=== PATIENT | female | born 1945 | race Caucasian/White ===

== ENCOUNTER 2020-01-20 21:25 | Emergency (ER) | payer OTHER, MEDICARE ==
[~2020-01-20] VITALS: Ht 160 cm; Wt 54.4 kg
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
[2020-01-20 22:16] LABS: URINE BILIRUBIN NEGATIVE (Negative); URINE BLOOD NEGATIVE (Negative); URINE CLARITY CLEAR; URINE COLOR YELLOW; URINE GLUCOSE-RANDOM* NEGATIVE (Negative); URINE KETONES NEGATIVE (Negative); URINE LEUKOCYTES-REFLEX NEGATIVE (Negative); URINE NITRITE-REFLEX NEGATIVE (Negative); URINE PROTEIN (DIPSTICK) NEGATIVE (Negative); URINE SPECIFIC GRAVITY <= 1.005 (1.005-1.035); URINE UROBILINOGEN 0.2 E.U./dl (0.2-1.0)
[2020-01-20 22:23] LABS: AMP/METHAMP Negative (Negative); BARBITURATES Negative (Negative); BENZODIAZEPINES Negative (Negative); COCAINE Negative (Negative); METHADONE Negative (Negative); OPIATES Negative (Negative); PCP Negative (Negative)
[2020-01-20 22:25] LABS: ABSOLUTE NEUTROPHILS 5.7 thou/uL (1.4-8.2); EOSINOPHILS 4.9 % (0.0-3.0); HEMATOCRIT 38.1 % (37.0-47.0); HEMOGLOBIN 13.1 gm/dL (12.0-15.0); LYMPHOCYTES 25.3 % (24.0-44.0); MCH 31.4 pg (26.0-34.0); MCHC 34.3 g/dL (28.0-37.0); MCV 91.5 fL (80.0-100.0); MONOCYTES 7.8 % (1.0-8.0); PLATELET COUNT 334 thou/uL (150-400); RBC 4.16 mil/uL (4.20-5.00); RDW 14.2 % (10.5-14.5); WBC 9.4 thou/uL (4.0-11.0)
[2020-01-20 22:31] LABS: ANION GAP 10 mmol/L (7-16); BUN 20 mg/dL (7-18); CALCIUM 9.8 mg/dL (8.5-10.1); CHLORIDE 105 mmol/L (98-107); CO2 26 mmol/L (21-32); CREATININE 0.8 mg/dL (0.6-1.0); GLUCOSE 107 mg/dL (74-106); POTASSIUM 4.4 mmol/L (3.5-5.1); SODIUM 141 mmol/L (136-145)
[2020-01-20 22:41] LABS: ALBUMIN 3.5 g/dL (3.4-5.0); MAGNESIUM 2.3 mg/dL (1.8-2.4); SALICYLATE < 2.8 mg/dL (2.8-20.0); SGOT 15 U/L (15-37); SGPT 22 U/L (30-65); TOTAL BILIRUBIN 0.2 mg/dL (0.2-1.0); TROPONIN-I <0.06 ng/mL (<0.06)
[2020-01-20] MEDS ORDERED: DULOXETINE HCL30 MG PO (23:43)
[2020-01-20] MEDS ORDERED: ARICEPT10 MG PO (23:44)
[2020-01-20] MEDS ORDERED: NORVASC5 MG PO (23:44)
[2020-01-20] MEDS ORDERED: BACLOFEN5 MG PO (23:44)
[2020-01-20] MEDS ORDERED: ACETAMINOPHEN500 MG PO ×2 (23:46→23:52)
[2020-01-20] MEDS ORDERED: ECOTRIN325 MG PO (23:46)
[2020-01-20] MEDS ORDERED: CALCIUM 600 +1 EA11 PO (23:47)
[2020-01-20] MEDS ORDERED: GLUCOSAMINE &1 EACH PO (23:48)
[2020-01-20] MEDS ORDERED: COENZYME Q10100 MG PO (23:48)
[2020-01-20] MEDS ORDERED: SUPER B COMPLE1 EAC2 PO (23:49)
[2020-01-20] MEDS ORDERED: ORAJEL 3X MOUT5.1 GM TOP (23:49)
[2020-01-20] MEDS ORDERED: MELATONIN3 M2 PO (23:49)
[2020-01-20] MEDS ORDERED: SEROQUEL 25 MG25 M1 PO (23:50)
[2020-01-20] MEDS ORDERED: NF (23:51)
[2020-01-21 04:34] VITALS: BP 135/75
--- NOTE | 2020-01-23 07:33 | EKG ---
[facility] [place] [address] ELECTROCARDIOGRAM REPORT Name: ÓSCAR BAILEY Room #: [facility]#: [id number] Admission: 01/20/20 Attend Phys: Discharge: 01/21/20 Date of : 43 Report #: [id number] THIS REPORT FOR: cc: Rasheed Decker MD, Michael E. 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 Operator: [facility] : 1945 Requested By: Paco Whitfield Order Number: [id number] MD: Yahir Diop Measurements Intervals [place] Rate: 64 P: 40 WI: 252 QRS: 2 QRSD: 97 T: 31 QT: 390 QTc: 403 Interpretive Statements Sinus rhythm Prolonged WI interval No previous ECG available for comparison Electronically Signed On 01-23-2020 7:33:18 LEAD GENERATION MARKETING MANAGER by Yahir Diop [email or web address] <ELECTRONICALLY SIGNED> By: Yahir Diop MD, [facility] 01/23/20 0733 99 99 Yahir Diop MD, FAC /EPI
== END 2020-01-21 04:40 | disposition short-term general hospital (02) ==
LOC: ER 21:25
PROVIDERS: Emergency Medicine; Nurse Practitioner
DX: F03.90 Unspecified dementia, unspecified severity, without behavioral disturbance, psychotic disturbance, mood disturbance, and anxiety (principal); Z79.82 Long term (current) use of aspirin; Z79.899 Other long term (current) drug therapy; Z20.828 Contact with and (suspected) exposure to other viral communicable diseases

== ENCOUNTER 2020-01-21 04:41 | Inpatient (IN) | payer OTHER, MEDICARE ==
[~2020-01-21] VITALS: Ht 160 cm; Wt 57.4 kg
[~2020-01-21 04:41] MED LIST: ACETAMINOPHEN500 MG PO; ARICEPT10 MG PO; BACLOFEN5 MG PO; CALCIUM 600 +1 EA11 PO; COENZYME Q10100 MG PO; DULOXETINE HCL30 MG PO; ECOTRIN325 MG PO; GLUCOSAMINE &1 EACH PO; MELATONIN3 M2 PO; NF; NORVASC5 MG PO; ORAJEL 3X MOUT5.1 GM TOP; SEROQUEL 25 MG25 M1 PO; SUPER B COMPLE1 EAC2 PO
[2020-01-21 05:04] VITALS: BP 125/60
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
[2020-01-21 07:42] VITALS: BP 138/83
[2020-01-21 10:50] VITALS: BP 138/83
--- NOTE | 2020-01-21 12:29 | NUR ---
1229 RESUMMED CARE FROM OVERNIGHT SHIFT THIS AM, PATIENT IN ROOM QUIET. PATIENT CAME TO BREAKFAST ATE TOOK MEDICATION WITHOUT INCIDENCE. PATIENTS ABDOMEN SOFT ROUND BOWEL SOUNDS PRESENT. PATIENTS LUNGS CLEAR PATIENT DENIES SI/VH/AH THIS MORNING PATIENT WAS THREATENING TO PICK A CHAIR UP AND TRY TO BREAK THE WINDOWS OUT TO GET OUT OF HERE. PATIENT WAS CUSSING STAFF OUT I TIRED TO EXPLAIN THE PROCESS OF WHY SHE WAS ADMITTED; AND THAT SHE HAD TO BE EVALUATED BY DR KRUEGER BEFORE SHE CAN LEAVE. PATIENT TRIED TO GET DR BAEZA TO DISCHARGE HER AND ALSO WAS EXPLAINING THE PROCESS. PATIENT SAT AND TALKED WITH OPTOMETRIC AIDE AND THEN STARTED CUSSING AND THREATENING. I GAVE PATIENT AN IM OF OLANZAPINE 5 MG IM TO HELP CALM PATIENT. WILL CONTINUE TO MONITOR PATIENT FOR BEHAVIORS AND SAFETY.
--- NOTE | 2020-01-22 06:07 | NUR ---
01-21-20 CARE TRANSFERRED 1899 OBSERVED PT LEFT-SIDE LYING IN BED RESTING WITH EYES CLOSED. LATER PT WAS EASILY AWAKEN TO VOICE, PT AAOX2, RR 16 EVEN AND NONLABORED ON RA, PT PRESENTS IRRITABLE AND AGITATED AT BEING IN HOSPITAL AND ASKED "HOW FUCKING LONG DO I HAVE TO BE HERE, TELL I SEE THE DOCTOR" PT WAS ORIENTATED AND REASSURED THAT PT WOULD BE SEEING THE DOCTOR AND WOULD HAVE A SUPPORT TEAM THAT WOULD BE ASSITING IN HER CARE. DURING MEDICATION ADMIN PT HAD NO DIFFICULTIES. NO S/S OF ACUTE DISTRESS NOTED, PT WILL CONTINUE TO BE MONITOR PER [facility] PROTOCOL.
[2020-01-22 07:03] VITALS: BP 115/70
--- NOTE | 2020-01-22 12:35 | NUR ---
Assumed care of patient at 0700. Up for breakfast. Came to the dayroom in her wheelchair. Cooperative with morning medications. Takes medication whole. Breath sounds clear, no cough, abdomen soft, active bowel sounds. Complaining of bilateral hip pain radiating down the back of both legs. Noted was having spasms after lunch. Did not observe spasms while sleeping. Patient asked "What is this place?" Oriented to the hospital. Asked patient where she was at [facility]. She responded the hospital but does not know why she is here and where she came from. Is only oriented to person. Responded this was October or November. Irritable but more pleasant as the day progressed. Given Tylenol 650 mg PO for pain at 12:15. (05/23). Came out of her room for lunch and returned to room.
--- NOTE | 2020-01-22 20:37 | NUR ---
Assumed care on 01/22/20, @ 19:15, in bed at start of shift, awakens to voice, responds that she has no needs and denies pain. Cooperated with assessment, HRRR, Lungs CTA, ABD Nx4Q. Reports pain in lower extremities of 3/10. Cooperated with medication administration, taking meds whole with apple juice. Denies knowing own name, oriented to president and election results, denies knowing name of hospital or current date. A&Ox1 to president only. Returns to covered up position in bed and says barbie as I turn the lights off. Bed in low position, will continue to monitor for safety and comfort as per unit protocol.
[2020-01-23 01:54] VITALS: BP 115/70
[2020-01-23 09:28] VITALS: BP 132/74
--- NOTE | 2020-01-23 10:36 | NUR ---
KO contacted [facility] and spoke with Emely, , concerning the Pt. Emely informed the Pt is in [facility] on a locked unit. Pt has her own room at the facility. Emely described the Pt's basline as usually being angry but Pt has never been physically aggressive until recent. Emely asked that updates be faxed to [phone]. KO will continue to follow.
--- NOTE | 2020-01-23 14:00 | NUR ---
1355 RESUMMED CARE FROM OVERNIGHT SHIFT THIS AM, PATIENT IN ROOM QUIET. PATIENT CAME ATE BREAKFAST TOOK MEDICATION WITHOUT INCIDENCE, PATIENTS ABDOMEN SOFT FLAT. BOWEL SOUNDS PRESENT LUNGS CLEAR PATIENT IRRITATED ABOUT DR KRUEGER NOT SEEING HER YET. PATIENT DENIES SI/HI/AH/VH AT PRESENT PATIENT IS ORIENTED TO SELF AND YEAR. PATIENT IS VERY ARGUMENTATIVE WHEN STAFF IS TRYING TO TALK WITH HER ABOUT HER CONDITION. THE PIPE LAYER CAME TO TALK WITH PATIENT ABOUT THE 96 HOUR HOLD. PATIENT WAS NOT RECEPTIVE OF WHAT THE PIPE LAYER WAS TELLING HER. PATIENT MET WITH DR KRUEGER AND DOMINIQUE AND DR KRUEGER GAVE PATIENT COPIES OF HIS EVALUATION. PATIENT IS NOT COMPREHENDING THAT HER DEMENTIA IS GETTING WORST. WILL CONTINUE TO MONITOR PATIENT FOR SAFETY AND BEHAVIORS.
[2020-01-23 19:28] VITALS: BP 109/66
[2020-01-23 20:34] VITALS: BP 109/66
--- NOTE | 2020-01-24 05:22 | NUR ---
PATIENT AWOKE AROUND 0400 AND GOT UP TO BRUSH TEETH. SHE SLAMMED HER DOOR SHUT. I WENT TO CHECK ON HER AND SHE WAS ANGRY THAT SHE COULDN'T BRUSH HER TEETH BECAUSE THERE WAS NO WAY TO TURN ON THE FAUCET IN HER BATHROOM. I SHOWED HER HOW IT IS MOTION DETECTED. PATIENT DID CRY FOR A FEW MINUTES LAST NIGHT BECAUSE SHE MISSES HER DOG. NOW AT THIS TIME SHE TOLD THIS NURSE SHE LAYS IN BED THAT SHE HAS TO GO HOME TODAY SO SHE CAN SEE HER POOH BEAR. SHE COULDN'T REMEMBER WHO HAD HER DOG BUT LAST EVENING WAS ABLE TO TELL ME THAT HER BROTHER HAS HER DOG. SHE ALSO STATES SHE HAS NOT SEEN THE DOCTOR SINCE SHE'S BEEN HERE. I TOLD HER SHE WAS TALKING WITH HIM IN THE [place] LAST NIGHT AND I WAS THERE TOO. SHE CALLED ME A LIAR. PATIENT CRANKY AND MEMORY IS VERY POOR. SHE WAS CARRYING A COPY OF HER SLUMS TEST AROUND LAST NIGHT AND STATES SHE DOES NOT AGREE WITH THE RESULTS AT ALL. WILL CONTINUE TO MONITOR.
[2020-01-24 07:19] VITALS: BP 152/96
--- NOTE | 2020-01-24 08:52 | NUR ---
ASSUMED CARE AT 0700 THIS MORNING. PT. CAME OUT OF HER ROOM YELLING AT STAFF THAT SHE WANTS HER DOG. WHEN SHE WAS INFORMED THAT THIS WOULD NOT HAPPEN, SHE BECAME INSTANTLY IRATE, CURSING AND SCREAMING. "YOU BITCH, I WANT MY GOD DAMN DOG.!" "I'M GETTING OUT OF THIS GOD DAMN HELL HOLE." SHE PUT HER LEFT HAND ON HER RIGHT UPPER ARM AND SHOVED UP THE RIGHT ARM. SHE INITIALLY REFUSED HER MORNING MEDICATIONS BUT WAS INFORMED THAT A SHOT WAS A DEFINITE POSSIBILITY, SHE TOOK THE MEDICATIONS. THIS RN ASKED TO SEE IN HER MOUTH TO MAKE SURE SHE DID NOT CHEEK THE MEDICATIONS. SHE STARTED MAKING FACES AT THIS RN. THEN SHE WALKED OFF. SHE ATE HER BREAKFAST WELL
[2020-01-24 10:57] VITALS: BP 1542/96
[2020-01-24 19:48] VITALS: BP 149/85
--- NOTE | 2020-01-24 21:52 | NUR ---
ASSUMED PT CARE AT 1915. PT RESTING CALMLY IN THE DAY ROOM WATCHING TV. PT DENIES PAIN. ALERT AND ORIENTED TO PERSON, TIME, AND PLACE. LUNG SOUNDS CTA. HEART SOUND NORMAL WITH REGULAR RHYTHM. ABDOMEN SOFT WITH ACTIVE BOWEL SOUNDS. SKIN PINK, CDI. NO AGITATION, AGGRESSIVENESS, CURSING, OR YELLING EXHIBITED AT THIS TIME. WILL CTM
[2020-01-25 07:46] VITALS: BP 157/91
--- NOTE | 2020-01-25 09:33 | NUR ---
ACCEPTED CARE OF PATIENT FROM 7P-7A SHIFT. PT IS HERE WITH DX OF DEMENTIA WITH AGGRESSIVE BEHAVIOR,COGNITIVE DISORDER. IS UP AND DRESSES SELF ASKS FOR DISPOSIBLE UNDERWARE.EATS WELL AT BREAKFAST AND TAKES MEDS PO WHOLE WITHOUT DIFFICULTY.ASKS THIS MULE DEVELOPER REPEATEDLY WHY SHES HERE AND HOW MUCH IT COSTS AND THAT SHE WANTS TO HAVE HER LITTLE DOG HER BROTHER TOOK AWAY FROM HER. IS ABLE TO SET DURING GROUP AND TALKS IN A PLEASANT TONE.
--- NOTE | 2020-01-25 10:53 | NUR ---
KO faxed updates for pt from 01/20-01/24. SW team will continue to follow pt during her stay on this unit.
[2020-01-25 13:54] VITALS: BP 157/91
[2020-01-25 19:56] VITALS: BP 109/63
--- NOTE | 2020-01-25 20:16 | NUR ---
PT CARE ASSUMED AT 1910. PT SITTING IN THE DAY ROOM WATCHING TV. PT OBSERVED INTERACTING PROPERLY WITH OTHER PTS. NO PAIN REPORTED AT THIS TIME. PT ALERT AND ORIENTED TO PERSON AND PLACE. LUNGS CTA. HEART SOUNDS NORMAL WITH REULAR RHYTHM. ABDOMEN SOFT, FLAT, WITH NORMAL BOWEL SOUNDS. SKIN CDI, CLEAN AND WARM. NO AGGRESSIVE BEHAVIOR OR AGITATION NOTED AT THIS TIME. WILL CTM.
[2020-01-26 07:36] VITALS: BP 124/85
[2020-01-26 09:21] VITALS: BP 126/85
--- NOTE | 2020-01-26 10:10 | NUR ---
1000 RESUMMED CARE FROM OVERNIGHT SHIFT THIS AM, PATIENT IN ROOM ASLEEP. PATIENT VERY GROUCHY THIS AM CUSSING AT STAFF TO LET HER JUST SLEEP. PATIENT DID GET UP ATE BREAKFAST TOOK MEDICATION WITHOUT INCIDENCE. PATIENT COMPLAINING TO ANOTHER PATIENT ABOUT WANTING TO GET OUT OF HERE. PATIENT ORIENTED TO SELF, PLACE, YEAR COULD NOT THINK OF DAY. PATIENT DENIES SI/HI/AH/VH AT PRESENT. PATIENT IS VERY DEMANDING AND OFTEN USES CUSS WORDS, PATIENTS ABDOMEN SOFT FLAT. PATIENTS BOWEL SOUNDS PRESENT LUNGS CLEAR WILL CONTINUE TO MONITOR PATIENT FOR SAFETY AND BEHAVIORS.
--- NOTE | 2020-01-26 13:48 | NUR ---
KO met with Dr. Francisco who said that pt has begun to make progress and believes discharge should be Thursday. KO contacted [facility] and asked to speak to [facility]. KO was told by the instrument specialist that Surjit was not in. KO asked who she could speak to about pt's discharge. KO was advised that she could speak to [place]. KO introduced herself to Geneva and explained what the doctor's beliefs were. Geneva asked "well what is he basing that off of? I reviewed the notes and she looks like she is still not ready." KO explained that yes at one point she wasnt, but that she has turned for the better; this is why the doctor wants to keep her during her weekend. Geneva said "well someone can call Thursday and discuss this." KO advised that is not how things are done. If pt has a bad weekend, the team will cancel the discharge. However, if she does not, she will have met the maximum benefit of her stay and will need to return. [place] said "well I'm not accepting her if she is not ready." KO advised that is not the policy, and that this unit has never had that relationship with [facility]. KO reminded her that this unit has had several of their patients return in better states than when they left. Geneva began to elevate her voice, over talk KO and tell her that she is not accepting pt. KO told her to have a good day, and politely hung up the phone. KO notified the [facility] director of this interaction. SW team will continue to follow pt during her stay on this unit.
--- NOTE | 2020-01-27 00:57 | NUR ---
Assumed care on 01/26/20 @ 19:15. Seated in the mileu watching a movie on TV and socializing with peers. Noted to be making verbal insulting comments to a peer and when ccautioned by staff to keep communications with peers civil and kind, responded, "don't nit pick on me" Cooperated with assessment, HRRR, S1S2 noted. Lungs CTA, BS normoactive. Speaks of her dog who she says she misses. Asks multiple times why her dog cannot be with her here. Denies anxiety, depression, SI, HI, AH, VH. Zeke provided @@ 2255 for insomnia. In bed at this time, eyes closed, respirations even and unlabored. Will continue to monitor as per unit protocol for safety and comfort.
[2020-01-27 01:06] VITALS: BP 133/60
--- NOTE | 2020-01-27 06:42 | NUR ---
Slept 6.2 hours overnight.
[2020-01-27 09:04] VITALS: BP 150/84
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
--- NOTE | 2020-01-27 11:30 | NUR ---
KO and Dr. Francisco contacted [facility] at [phone]. No answer. Dr. Francisco left a msg. KO team will continue to follow pt during her stay on this unit.
--- NOTE | 2020-01-27 15:43 | NUR ---
DURING WEEK ONE OF HER ADMISSION, ÓSCAR STARTED OFF WITH A STRUGGLE ADJUSTING TO THE NEW ENVIRONMENT. PT APPEARED IRRITABLE AND AGGITATED. PT DEMONSTRATED LOUD OUTBURTS WELL AGGRESSIVE BEHAVIORS. PT HAS APPEARED MORE CALMER THAN BEFORE DUE TO BEING ON THE PROPER MEDICATIONS. PT HAS BEEN MORE COMPLAINT SINCE THEN AND HAS ATTENDED ALL GROUPS WITH APPROPRIATE BEHAVIORS. IT IS ENCOURAGED BY THE RECREATION THERAPIST THAT SHE WILL CONTINUE TO IMPROVE HER COPING SKILLS TO REDUCE FUTURE STRESSORS.
--- NOTE | 2020-01-27 16:09 | NUR ---
PATIENT CARE ASSUMED AT 0700 - HAS BEEN IRRITABLE AND UPSET WITH DISRUPTIVE PATIENT - BECAME CONFRONTATIONAL WITH STAFF MEMBER OVER TELEVISION AND INABILITY TO CHANGE CHANNEL. PATIENT HAS BEEN IN PAIN WITH HER FRONT TOOTH. GIVEN TYLENOL TO HELP RELIEVE DISCOMFORT. PATIENT CAN BE DEMANDING AND DIFFICULT TO APPEASE AT TIMES. HAS DISPLAYED ANGER, DISTASTFUL STATEMENTS ABOUT STAFF AND PEERS AND ANXIOUSNESS. MED COMPLIANT - SELF CARE - GOOD APPETITE - FORGETFUL AT TIMES.
--- NOTE | 2020-01-27 17:58 | NUR ---
PT. AFTER SUPPER C/O SHE WAS STILL HUNGRY. SHE WAS CAUGHT IN THE REFRIGERATOR PICKING UP JUICE, PUDDING AND ALSO PEANUTBUTTER. SHE WAS INFORMED ALL FOOD MUST BE CONSUMED IN THE DINING ROOM. WHEN THIS RN LOOKED AROUND, PT. WAS NOT TO BE FOUND. WENT TO HER ROOM AND SHE WAS EATING THE FOOD. THE REMAINDER OF THE FOOD WAS TAKEN BACK TO THE KITCHEN. SHE WAS C/O, "YOU ARE STARVING ME". IT WAS AGAIN EXPLAINED SHE AT 100% OF HER SUPPER AND TOOK FOOD OUT OF THE REFRIGERATOR (EVEN AFTER BEING TOLD NOT TO) AND TAKING THE FOOD TO HER ROOM (EVEN THOUGH SHE WAS INFORMED SHE COULD NOT). SHE CAME BACK INTO THE DINING ROOM AND CONSUMED SOME PUDDING. NO OTHER PROBLEMS NOTED AT THIS WRITING.
[2020-01-27 19:06] VITALS: BP 134/83
--- NOTE | 2020-01-28 04:59 | NUR ---
Assumed care of patient this pm shift. Patient in good spirits in the mileu. Patient denies hi/si. Patients affect is happy, euthymic. Patient takes medications whole with thin fluids. Patient is continent of bowel and bladder. Patient is not considered a falls risk. Gait is steady and even. No signs of acute distress. We will continue to monitor per hospital policy.
[2020-01-28 11:00] VITALS: BP 127/68
--- NOTE | 2020-01-28 18:31 | NUR ---
Alert and orientated to person, place only. Refusing assessment in AM and all meds except for tylenol. Initially refused quetiapine but took once she was told she would have to have IM olanzapine. [place] self in WC most of day. States she has pain of 3 in lower back and hips. Dr. Philip here examining pt, pelvic Xray done. Breath sounds clear t/o, bilaterally equal. Reg HR auscultated. Color pink with brisk capillary refill and palpable peripheral pulses. Active bowel sounds over soft, flat abdomen. MOM and prune juice given for no reported stool since 01/24/20. Large firm BM per toilet per community educator. Lidocaine patch placed and prn tylenol given for back pain of 09/22. No relief from meds. Dr. Philip notified. PRN med given per order for pain of 07/23. Currently looking for remote and wanting heat adjusted in her room. No s/o distress.
[2020-01-28 20:16] VITALS: BP 138/76
--- NOTE | 2020-01-29 03:39 | NUR ---
01-28-12 CARE TRANSFERRED 1899 OBSERVED PT WALKING IN HALLWAY. 1950 PT AAOX3, VSS, RR EVEN AND NONLABORED ON RA. PT REPORTS HIP PAIN BI-LAT SCORES 6-7 ON 0-10 SCALE, PT DENIES SI/HI. PT PRESENTS ANGRY WITH ANXIETY OVER HER SITUATION AND WORRIED ABOUT HER DOG POOBEAR. PT CLAIMS THAT SHE HAS NOT SEEN A DOCTOR HERE YET, FORGETFUL ON DAILY EVENTS. PT HAS REMAINED CALM AND COOPERATIVE THROUGOUT NURSING ASSESSMENT. DURING MEDICATION ADMIN PT HAD NO DIFFICULTIES. LATER PT BED WAS READJUSTED FOR COMFORT. ZERO S/S OF ACUTE DISTRESS NOTED, PT WILL CONTINUE TO BE MONITOR PER [facility] PROTOCOL.
[2020-01-29 08:40] VITALS: BP 155/79
[2020-01-29 10:54] VITALS: BP 155/79
--- NOTE | 2020-01-29 12:12 | NUR ---
KO spoke to Geneva Simmons, Clinical Director with [facility] [phone] cell who reports she is hesitant to take patient back because she feels like the hospital is trying to strong-arm her. She states she will review the nurses notes of how patient does over the weekend and will make a decision on Thursday about whether to accept patient. She asked for a call back on Thursday morning. SW team will continue to monitor.
--- NOTE | 2020-01-29 13:21 | NUR ---
1315 RESUMMED CARE FROM OVERNIGHT SHIFT THIS AM, PATIENT IN ROOM RESTING QUIET. PATIENT GOT UP ATE BREAKFAST TOOK MEDICATION WITHOUT INCIDENCE. PATIENTS ADBOMEN SOFT FLAT BOWEL SOUNDS PRESENT LUNGS CLEAR PATIENT TOOK SHOWER THIS AM. PATIENT DENIES SI/HI/AH/VH AT PRESENT PATIENT OREINTED TIMES 3. PATIENT PARTICIPTED IN GROUPS TODAY COVID TEST DONE AT 0905 THIS AM. PATIENT CALM COOPERATIVE WANTS TO GO BACK TO [facility] SO SHE CAN BE WITH HER DOG. WILL CONTINUE TO MONITOR PATIENT FOR SAFETY AND BEHAVIORS.
[2020-01-29 19:21] VITALS: BP 155/70
--- NOTE | 2020-01-29 22:25 | NUR ---
Care assumed of patient at 1915: Patient awake in room at start of shift. Joined [facility] for HS snack. Interacting and communicating appropriately with others. Alert and oriented to person and place. Forgetful on time and situation. Patient reports that she is happy to be going home tomorrow. Calm, pleasant and cooperative. Reports "some" depression due to being in the hospital. Reports anxiety is "much better" since she will be leaving tomorrow. Reports pain to right hip. Provided scheduled HS pain medication. Patient sleeping shortly after. Took HS medication whole without difficulty. No aggression or agitation observed. No delusional or paranoia behaviors observed. Patient resting quietly in bed at this time.
[2020-01-30 08:19] VITALS: BP 144/75
--- NOTE | 2020-01-30 10:36 | NUR ---
KO spoke with [facility] at [facility] concerning the Pts' d/c. Brit stated she recieved the clinical notes and was willing to accept the Pt today. D/C was set for 01/29 @ 1330. [facility] transportation for the Pt to [place]
[2020-01-30] MEDS ORDERED: FELODIPINE 5 MG5 M1 PO (11:25)
[2020-01-30] MEDS ORDERED: TRAZODONE HCL50 MG PO (11:26)
[2020-01-30] MEDS ORDERED: SEROQUEL 100 M100 M1 PO (11:28)
[2020-01-30] MEDS ORDERED: HYDROCORTISONE30 G9 TOP (11:29)
--- NOTE | 2020-01-30 15:45 | NUR ---
PATIENT DISCHARGED TO [facility] [place] - [facility] PICKED UP AT 1515 - PATIENT HAD BELONGINGS WITH HER AND SIGNED NECESSARY PAPERWORK. PRESCRIPTIONS IN ENVELOPE ALONG WITH HOSPITAL DOCUMENTATION AND RECORDS. PATIENT ESCORTED DOWN VIA WHEELCHAIR. THREE O'CLOCK MEDICATIONS ADMINISTERED PRIOR TO DEPARTURE.
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
== END 2020-01-30 15:49 | DRG 57 ==
LOC: SBH 04:41
PROVIDERS: ADMIT Psychiatry & Neurology Psychiatry; ATTEND Psychiatry & Neurology Psychiatry
DX: G30.9 Alzheimer's disease, unspecified (principal); F02.81 Dementia in other diseases classified elsewhere, unspecified severity, with behavioral disturbance; F29 Unspecified psychosis not due to a substance or known physiological condition; F32.9 Major depressive disorder, single episode, unspecified; I10 Essential (primary) hypertension; Z96.649 Presence of unspecified artificial hip joint; M19.90 Unspecified osteoarthritis, unspecified site; Z66 Do not resuscitate; M54.9 Dorsalgia, unspecified; R21 Rash and other nonspecific skin eruption; Z20.828 Contact with and (suspected) exposure to other viral communicable diseases; Z88.1 Allergy status to other antibiotic agents; Z88.8 Allergy status to other drugs, medicaments and biological substances; Z79.899 Other long term (current) drug therapy; Z87.891 Personal history of nicotine dependence
CPT/HCPCS: 10880

== ENCOUNTER 2021-02-22 11:22 | Emergency (ER) | payer OTHER, MEDICARE ==
[~2021-02-22] VITALS: Ht 162.6 cm; Wt 54.0 kg
--- NOTE | ~2021-02-22 | EMS ---
[address] [address] EMS Patient Care Report Name: ÓSCAR BAILEY Room #: PRE M.R.#: [id number] Admission: Attend Phys: Discharge: Date of : 43 Report #: [id number] THIS REPORT FOR: //name// Report Transmitted: 02/22/2021 11:06 EMS Care Summary [facility] MED-ACT Incident [id number] @ 02/22/2021 10:45 Incident Location [address] [place] [address] Patient ÓSCAR BAILEY Female, 76 Years 1945 Patient Address [address] [place] [address] Patient History Hypertension (HTN),Alzheimer's,Hyperlipidemia,Fibromyalgia,Rheumatoid Arthritis,Anemia,Alcohol Abuse, Patient Allergies Augmentin,Other drug allergy,Prozac, Patient Medications Aspirin, Gabapentin, Felodipine, Divalproex Sodium, Baclofen, Memantine, Duloxetine, Acetaminophen, Trazodone, Tramadol, Donepezil, Lidocaine, Chief Complaint AGGRESSIVE AND COMBATIVE Disposition Transported No Lights/[place] Reason Psychiatric Problem/Abnormal Behavior/Suicide Attempt Transported To [address] [address] EMS Patient Care Report Name: ÓSCAR BAILEY Room #: PRE ER Adam.#: [id number] Admission: Attend Phys: Discharge: Date of : 43 Report #: [id number] Pt is found calmly sitting in a chair in the main room of the facility. Staff states that the pt has been acting aggressively the past week. She has been trying to smoke cigarettes in her room and has also been hitting and violent to staff. Staff states that they have made arrangements with [facility] for a behavioral admission, and relays that the pt is to first start in the ER. Pt converses politely enroute to ER. She states that her only complaint is body spasms that she wishes would stop. She denies any pain, recent illness. Pt is able to stand and sit on the cot without difficulty and is secured. Pt is sheet lifted to ED bed without incident and report to RN. Initial Vitals @11:10P: 80,SpO2: 94, @11:13P: 80,R: 16,BP: 124/75,SpO2: 94, @10:59P: 79,R: 18,BP: 131/80,SpO2: 93, @10:59Pain: 0/10,Temp: 97.8F,Glucose: 108, Impression Behavioral/psychiatric episode Procedures @10:57 Stretcher Response: Unchanged @11:07 Surgical Mask on Patient Response: Unchanged Timeline 10:43,Call Received 10:43,Psap Call 10:45,Dispatched 10:45,En Route 10:51,On Scene 10:55,At Patient 10:57,Stretcher,Response: Unchanged 10:59,BP: / M,PULSE: ,RR: R,SPO2: Ox,ETCO2: ,B,PAIN: 0,GCS: , 10:59,BP: 131/80 M,PULSE: 79,RR: 18 R,SPO2: 93 Ox,ETCO2: ,BG: ,PAIN: ,GCS: , 11:02,Depart Scene 11:07,Surgical Mask on Patient,Response: Unchanged 11:10,BP: / M,PULSE: 80,RR: R,SPO2: 94 Ox,ETCO2: ,BG: ,PAIN: ,GCS: , 11:13,BP: 124/75 M,PULSE: 80,RR: 16 R,SPO2: 94 Ox,ETCO2: ,BG: ,PAIN: ,GCS: , 11:17,At Destination 11:39,Call Closed Disclaimer v1.1 Copyright 2020 [employer] This EMS Care Summary contains data elements from the applicable legal record (which may be displayed differently). It is designed to provide pertinent [address] [place] [address] EMS Patient Care Report Name: ÓSCAR BAILEY Room #: PRE [facility]..#: [id number] Admission: Attend Phys: Discharge: Date of : 43 Report #: [id number] information for the following purposes: continuity of care, clinical quality, and state data reporting. The complete legal record is available to ED staff and administrators of the receiving hospital in [employer] Patient Tracker. All data is provided "as is."
[~2021-02-22 11:22] MED LIST changes: +FELODIPINE 5 MG5 M1 PO; +HYDROCORTISONE30 G9 TOP; +SEROQUEL 100 M100 M1 PO; +TRAZODONE HCL50 MG PO
[2021-02-22] MEDS ORDERED: MEMANTINE HCL5 MG PO (11:44)
[2021-02-22] MEDS ORDERED: TRAMADOL 50 MG50 MG PO (11:44)
[2021-02-22] MEDS ORDERED: GABAPENTIN 100100 MG PO (11:44)
[2021-02-22 11:51] VITALS: BP 125/68
[2021-02-22 11:51] LABS: ABSOLUTE NEUTROPHILS 4.1 thou/uL (1.4-8.2); BASOPHILS 1.1 % (0.0-2.0); EOSINOPHILS 5.1 % (0.0-3.0); HEMATOCRIT 41.3 % (37.0-47.0); HEMOGLOBIN 13.8 gm/dL (12.0-15.0); LYMPHOCYTES 26.8 % (24.0-44.0); MCH 30.9 pg (26.0-34.0); MCHC 33.4 g/dL (28.0-37.0); MCV 92.7 fL (80.0-100.0); MONOCYTES 8.2 % (1.0-8.0); PLATELET COUNT 325 thou/uL (150-400); POLYS 58.8 % (36.0-66.0); RBC 4.45 mil/uL (4.20-5.00); RDW 13.7 % (10.5-14.5); WBC 6.9 thou/uL (4.0-11.0)
[2021-02-22 12:31] LABS: CALCIUM 9.5 mg/dL (8.5-10.1); CREATININE 0.8 mg/dL (0.6-1.0); POTASSIUM 3.9 mmol/L (3.5-5.1); TOTAL BILIRUBIN 0.2 mg/dL (0.2-1.0)
[2021-02-22 12:39] LABS: MAGNESIUM 2.3 mg/dL (1.8-2.4); SALICYLATE 3.8 mg/dL (2.8-20.0)
[2021-02-22 12:44] LABS: TOTAL PROTEIN 6.7 g/dL (6.4-8.2)
[2021-02-22 13:10] LABS: URINE BILIRUBIN NEGATIVE (Negative); URINE BLOOD NEGATIVE (Negative); URINE CLARITY CLEAR; URINE COLOR YELLOW; URINE GLUCOSE-RANDOM* NEGATIVE (Negative); URINE KETONES NEGATIVE (Negative); URINE LEUKOCYTES-REFLEX NEGATIVE (Negative); URINE NITRITE-REFLEX NEGATIVE (Negative); URINE PROTEIN (DIPSTICK) NEGATIVE (Negative); URINE SPECIFIC GRAVITY 1.025 (1.005-1.035); URINE UROBILINOGEN 0.2 E.U./dl (0.2-1.0)
[2021-02-22 13:17] LABS: AMP/METHAMP Negative (Negative); BARBITURATES Negative (Negative); BENZODIAZEPINES Negative (Negative); COCAINE Negative (Negative); METHADONE Negative (Negative); OPIATES Negative (Negative); PCP Negative (Negative)
--- NOTE | 2021-02-23 11:54 | EKG ---
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1945 Requested By: Ulises Ramesh Order Number: [id number] MD: Yahir Diop Measurements Intervals Clymer Rate: 71 P: 35 NC: 213 QRS: -16 QRSD: 74 T: 139 QT: 358 QTc: 389 Interpretive Statements Sinus rhythm Borderline prolonged NC interval Abnormal R-wave progression, early transition Inferior infarct, old Consider anterior infarct Compared to ECG 01/20/2020 22:00:12 Myocardial infarct finding now present Electronically Signed On 02-23-2021 11:54:31 EDI ANALYST by Yahir Diop [email or web address] <ELECTRONICALLY SIGNED> By: Yahir Diop MD, [facility] 02/23/21 1154 113 36 Yahir Diop MD, FAC /EPI
== END 2021-02-22 16:04 ==
LOC: ER 11:22
PROVIDERS: Emergency Medicine
DX: R45.1 Restlessness and agitation (principal); I10 Essential (primary) hypertension; K21.9 Gastro-esophageal reflux disease without esophagitis; F41.9 Anxiety disorder, unspecified; F32.9 Major depressive disorder, single episode, unspecified; E78.5 Hyperlipidemia, unspecified; F17.210 Nicotine dependence, cigarettes, uncomplicated; Z79.891 Long term (current) use of opiate analgesic; Z79.1 Long term (current) use of non-steroidal anti-inflammatories (NSAID); Z79.899 Other long term (current) drug therapy; Z79.82 Long term (current) use of aspirin; Z88.1 Allergy status to other antibiotic agents; Z88.6 Allergy status to analgesic agent; Z88.5 Allergy status to narcotic agent; Z88.8 Allergy status to other drugs, medicaments and biological substances

== ENCOUNTER 2021-02-22 17:33 | Inpatient (IN) | payer OTHER, MEDICARE ==
[~2021-02-22] VITALS: Ht 162.6 cm; Wt 67.7 kg
[~2021-02-22 17:33] MED LIST changes: +GABAPENTIN 100100 MG PO; +MEMANTINE HCL5 MG PO; +TRAMADOL 50 MG50 MG PO
[2021-02-22 18:09] VITALS: BP 138/84
--- NOTE | 2021-02-22 18:54 | NUR ---
PATIENT NEW ADMIT HERE FROM [facility], PATIENT IN ER HAD MULTIPLE IM'S DUE TO AGGRESSION. PATIENT BIT DOPE SPRAYER IN ER WAS STANDING ON TABLE IN ER. PATIENT UPON ARRIVING ON UNIT COOPERATIVE CALM WAS COOPERATIVE WITH ASSESSMENT. PATIENT ALERT TO SELF ONLY HAS CONFUSION DOES NOT KNOW WHAT YEAR, PLACE OR SITUATION. PATIENT HAS MULTIPLE DRUG ALLERGIES AND MEDICAL PROBLEMS. PATIENTS ABDOMEN SOFT BOWEL SOUNDS PRESENT PATIENTS LUNGS CLEAR. I CALLED BROTHER SELENA JEFFERS FOR CONSENTS AND GAVE HIM THE SECURITY CODE. WILL CONTINUE TO MONITOR PATIENT FOR SAFETY AND BEHAVIORS. CALLED DR KRUEGER FOR ORDERS AND TALKED WITH DR GUIDRY FOR NEW ADMIT. WILL CONTINUE TO MONITOR PATIENT FOR SAFETY AND BEHAVIORS.
[2021-02-22 19:14] VITALS: BP 129/82
--- NOTE | 2021-02-23 04:13 | NUR ---
Assumed pt's care beginning of this HS shift. Pt oriented to self. Confused. Forgetful. Pt so far cooperative with care. Pt verbalized having generalized pain. Tramadol ordered and given. Pt has spasm which she voiced has been happening "for along time". Pt's bed alarm was not working and bed was switched. Fall precaution in place as pt is unsteady. Pt provided with walker for ambulation. Pt woke up onetime and asked for her dog "poohbear" which lives with her at her nursing facility. Pt reoriented to place and situation. Pt denied the reasons for her being here. Pt continues to remain cooperative with care and continues to rest with eyes closed. Nursing to continue to monitor.
[2021-02-23 07:40] LABS: ABSOLUTE NEUTROPHILS 4.6 thou/uL (1.4-8.2); BASOPHILS 0.9 % (0.0-2.0); EOSINOPHILS 5.5 % (0.0-3.0); HEMATOCRIT 39.9 % (37.0-47.0); HEMOGLOBIN 13.4 gm/dL (12.0-15.0); MCH 31.2 pg (26.0-34.0); MCHC 33.5 g/dL (28.0-37.0); MCV 93.1 fL (80.0-100.0); MONOCYTES 7.4 % (1.0-8.0); PLATELET COUNT 304 thou/uL (150-400); POLYS 60.2 % (36.0-66.0); RBC 4.29 mil/uL (4.20-5.00); RDW 13.8 % (10.5-14.5); WBC 7.7 thou/uL (4.0-11.0)
[2021-02-23 07:58] LABS: ANION GAP 8 mmol/L (7-16); BUN 15 mg/dL (7-18); CHLORIDE 107 mmol/L (98-107); CO2 26 mmol/L (21-32); CREATININE 0.7 mg/dL (0.6-1.0); GLUCOSE 86 mg/dL (74-106); POTASSIUM 4.3 mmol/L (3.5-5.1); SGOT 27 U/L (15-37); SGPT 26 U/L (14-59); SODIUM 141 mmol/L (136-145); TOTAL BILIRUBIN 0.2 mg/dL (0.2-1.0); TOTAL PROTEIN 6.5 g/dL (6.4-8.2)
[2021-02-23 09:54] VITALS: BP 147/67
--- NOTE | 2021-02-23 10:37 | NUR ---
ATE BREAKFAST IN ROOM THIS AM D/T COVID PROTOCOL-SLEEPING UPON INITIAL ASSESSMENT BUT WHEN AM MEDICATIONS GIVEN AND ASSESSMENT COMPLETED WAS AWAKE AND SITTING IN DAYROOM. IRRITABLE -ASKING SEVERAL TIMES FOR DOG "POO BEAR" ANGRY AFFECT STATING SHE IS LEAVING AND GOT UP ABRUPTLY AND WALKED OUT OF ROOM. PACING IN HALLWAYS TRYING EXIT DOORS AND EXIT SEEKING -DID TAKE AM SEROQUEL BUT REFUSED NICOTINE PATCH. VS STABLE-GAIT STEADY WITHOUT ASSISTIVE DEVICES
[2021-02-23 15:10] LABS: CHOLESTEROL 303 mg/dL (<200); HDL CHOLESTEROL 52 mg/dL (>40); LDL CHOLESTEROL 218 mg/dL (<100); TC:HDL 5.8 Ratio (Not establshd); TRIGLYCERIDE 165 mg/dL (<150); VLDL 33 mg/dL (<40)
[2021-02-23 15:14] LABS: SERUM ASSESSMENT Clear
--- NOTE | 2021-02-23 16:29 | NUR ---
CONTINUES RESTLESS-ASKING FOR DOG AND TO GO HOME STATES MULTIPLE TIMES THAT SHE IS HERE BECAUSE HER BROTHER IS TRYING TO [id number] HER AND HATES HER AND DENIES ANY TYPE OF BEHAVIORS THAT WOULD WARRENT HOSPITILIZATION. DENIES SI,SH,HI. GAIT STEADY WITHOUT ASSISTIVE DEVICES. HAS RAISED VOICE TO NURSING STAFF SEVERAL TIMES AND STATES WE ARE "IN ON IT" WITH HER BROTHER. DID COME OUT FOR MEALS AND ATE 10-50 PERCENT. HAS BEEN TAKING SELF TO BATHROOM AND NO INCONTINENCE NOTED. BS ACTIVE X4-STATES HAD BM YESTERDAY AND DENIES CONSTIPATION-IRRITABLE MOOD WITH EPISODIC VERBAL AGITATION BUT SO FAR NO PHYSICAL AGGRESSION
[2021-02-23 19:19] VITALS: BP 145/104
--- NOTE | 2021-02-24 03:13 | NUR ---
Assumed pt's care beginning of this pm shift. Pt oriented to self. Confused. Forgetful. Pt was in her room at time of assessment. Pt so far this shift has been pleasant and cooperative with care. No agitation or agression noted. Pt took meds whole without issues. PRN Tramadol given for pain per pt's request. Pt voiced pain is worst with spasms. Pt remains in her room, resting with eyes closed. Nursing to continue to monitor.
[2021-02-24 05:36] LABS: GLYCOHEMOGLOBIN (HGB A1C) 5.7 % (4.8-5.6)
[2021-02-24 10:24] VITALS: BP 153/74
[2021-02-24 19:55] VITALS: BP 123/56
[2021-02-24 20:09] VITALS: BP 123/56
--- NOTE | 2021-02-24 21:23 | NUR ---
Assumed pt care at 1300. Pt was in activity area resting at this time. Pt presented restless and hostile. Pt was oriented to self only at this time, continuing to ask for her dog and stating that [facility]. Pt was reoriented to environment at this time. Pt denied any depression or anixety. Pt denied any visual or audio hallucinations though was noted to have delusion of having her dog, being in a senior facility, and not being oriented to her environment. Pt was tearful and would cry about her dog. Pt was comforted at this time. No suicidal or homicidal ideation noted. Pt redirectable. Prn tramadol given for headache which provided complete pain relief. No further concerns at this time.
--- NOTE | 2021-02-25 01:04 | NUR ---
02/24/210 assumed care from the day shift, patient isolating to room, A&Ox1 only oriented to self. Confusion noted regarding place, reports that she is not in a hospital, not oriented to situation. Asks repeatedly for PooBear, which seems to be a dog, however not certain whether it is a pet dog or a stuffed toy dog. She reports that her brother is caring for the dog. Tylenol 650 given for General pain level of 6/10, and upon follow up is noted to be sleeping. Baclofen provided as scheduled. Awakens in the night asking to smoke and how long she has been here, when oriented to admission 2.5 days ago, she asks if she has been here 2 weeks. Ambulates with a steady gait, toilets self, ABD Nx4Q, over a round abdomen. 12 minute rounding for patient's safety and comfort as per unit protocol.
[2021-02-25 09:09] VITALS: BP 143/74
--- NOTE | 2021-02-25 10:15 | NUR ---
New admit to [facility] with dementia and behavioral disturbance. Intake records show average of 60% of past 7 meals recorded. Visit with pt this am, states no problems with appetite but did mention wanting same breakfast of reynoso, eggs, toast, juice every morning. Does not like cereals. Wt from 2020 shows 126 lb which reflects pts usual wt verbalized today. Bedscale, however showing 165 lb? Will follow weekly wt trends for accuracy. Presents at low nutrition risk
[2021-02-25 20:13] VITALS: BP 120/65
--- NOTE | 2021-02-25 23:07 | NUR ---
PATIENT WAS ALREADY IN HER ROOM AT BEGINNING OF THE SHIFT. SHE IS AAOX4 AND COOPERATIVE. STATES THAT SHE HAS BEEN HAVING SOME PAIN IN HER LOWER EXTREMETIES. PRN MEDICATION ADMINISTERED. SHE IS COMPLIANT WITH ALL TREATMENT ABD TAKES ALL MEDICATIONS SCHEDULED. ALL SAFETY PRECAUTIONS ARE IN PLACE. NO OTHER ACUTE ISSUES IDENTIFIED. WILL CONTINUE TO MONITOR FOR CHANGES IN PATIENT STATUS.
[2021-02-26 09:50] VITALS: BP 153/74
[2021-02-26 10:02] VITALS: BP 153/74
--- NOTE | 2021-02-26 15:14 | NUR ---
Patrica was alert and oriented to self only this shift. When asked if she knew where she was, why she was at the hospital, or if she knew what month it was, pt responded by stating "I don't know". This morning pt presented as irritable and frustrated but as the day continued she presented as more calm and redirectable. She initially did not want to take her morning medications but with much encouragement she was compliant. She was compliant with evening medications without difficulty. Pt was withdrawn and isolative to her room throughout the day and the only time she came out of her room was to come to the nurses station and ask for her cigarettes. Pt refused her AM nicotine patch and was given education regarding nicotine cravings but still refused the patch. Her patch was yesterday was found stuck to her bedside table. This afternoon pt came to the nurses station and asked for her cigarettes, education provided, and pt stated "F you and that door, you b*tches". Pt then walked calmly back to her room. Pt denied physical symptoms such as pain, SOB, cough, and GI upset; will continue to monitor.
[2021-02-26 20:06] VITALS: BP 139/77
--- NOTE | 2021-02-27 01:31 | NUR ---
PATIENT IS AAOX1. CAME OUT OF HER ROOM AND STATED THAT SHE NEEDED TO FIND POOH BEAR. WHE ASKED WHO THAT IS SHE STATED THAT IS HER DOG. REORIENTD PATIENT TO THE FACT THAT SHE WAS IN A HOSPITAL. SHE STATED THAT SOMEBODY NEEDS TO FIND HER DOG FIRST THING IN THE AM. SHE IS WITHDRAWN AND ISOLATIVE TO HER ROOM. FLAT AFFECT. DENIES PAIN OR NEEDS. SHE IS COMPLIANT WITH ALL OF HER MEDICATIONS. VSS. NO DISTRESS NOTED. WILL CONTINUE TO MONITOR FOR CHANGES IN PATIENT STATUS.
[2021-02-27 13:56] VITALS: BP 134/81
--- NOTE | 2021-02-27 15:56 | NUR ---
PATIENT WAS IN BED ALEEP WHEN CARE ASSUMED, WHEN AWOKEN, SHE CAME OUT FOR BREAKFAST. APPETITE IS GOOD, SHE EATS MEALS, AND DRINKS FLUID FAIRLY WELL. PATIENT TOOK ALL MEDICATION WHOLE WITHOUT DIFFICULY. PATIENT DENIES SUICIDAL/HOMICIDAL IDEATION. FOR DEPRESSION/ANXIETY, SHE STATES " AM NOT REALLY DEPRESSED". PATIENT DID DECLINE SMOKE PATCH. PATIENT IS ISOLATIVE, WITHDRAWN, DO NOT PARTICIPATE IN GROUP THERAPY. PATIENT IS CURRENTLY ON ROOM LOCKOUT FOR MEALS/GROUPS. PATIENT IS FORGETFUL, AND CAN BE CONFUSED AT TIMES. NO SIGN OF ACUTE DISTRESS NOTED AT THIS TIME, WILL MONITOR FOR SAFETY.
[2021-02-27 19:28] VITALS: BP 110/55
[2021-02-27 19:40] VITALS: BP 110/55
--- NOTE | 2021-02-28 00:48 | NUR ---
02/27/21 1900, ASSUMED CARE AT THE BEGINNING OF THE SHIFT, A&OX1-2, FORGETFUL AND CONFUSED. ISOLATES TO HER ROOM. ADMITTED TO [facility] FOR DEMENTIA AND BEHAVIORS. CONTINENT OF B&B AND AMBULATORY HOWEVER USES A W/C TO TRNSPORT SIGNIFICANT DISTANCE. HRRR, LUNGS CTA, ABD N X4Q, WITH A BM REPORTED 02/26/21. WILL CONTINUE ROUNDING Q 12 MINUTES FOR PATIENT CARE AND SAFETY.
[2021-02-28 07:05] VITALS: BP 146/71
--- NOTE | 2021-02-28 08:14 | NUR ---
Upon arrival to the unit this AM pt was observed in hallway agitated and irritable. Nursing reported that pt was uncooperative with orders for room lockout that had been placed previous day and was escorted out of her room with assistance from security. FINANCIAL SALES REPRESENTATIVE was then approached by pt who expressed her desire to return to her room as she was not hungry. FINANCIAL SALES REPRESENTATIVE explained rules and processes of unit as well as programming schedule. Pt expressed hopelessness regarding her ability to return home when therapist suggested that program participation could aid in her ability to discharge sooner along with cooperative behavior. Pt was able to share that she prefers to keep to herself as she has had difficulty finding anyone in the milieu to hold an appropriate conversation with her and that she stays in her room often at her AL and could not understand why this was not accepted on our unit. FINANCIAL SALES REPRESENTATIVE and pt came to an agreement that pt would watch some television and maybe eat a few bites of her breakfast and then attend group where she would be introduced to a few female patients that she may enjoy interacting with. RN and FINANCIAL SALES REPRESENTATIVE to follow up with Dr. Francisco on necessity of room lockout if pt is engaging appropriately in milieu throughout some of each day.
[2021-02-28 09:40] VITALS: BP 146/71
--- NOTE | 2021-02-28 16:08 | NUR ---
Very resistant to getting out of bed this AM, requiring calling security. Attempting to scratch, fighting and using profanity. Refused to answer orientation questions in AM but was orientated to name later in AM. Denied SI/HI. Spent majority of day ambulating with regular, steady gait t/o unit. Occassionally wandered into peers rooms but was very redirectable. Conversing with peers. Breath sounds clear. Reg HR auscultated. Color pink with brisk capillary refill and palpable peripheral pulses. No edema. Independent with voiding. Active bowel sounds over soft, rounded abdomen.
[2021-02-28 19:00] VITALS: BP 132/51
[2021-02-28 19:40] VITALS: BP 132/51
--- NOTE | 2021-03-01 03:32 | NUR ---
PATIENT CARE WAS RESUMED AT 1900. SHE WAS IN HER ROOM AND SHE IS AWAKE. LUNGS ARE CLEAR BS ACTIVE X4 QUADS. SHE AMBULATES AND TAKES HER MEDS WHOLE. SHE DENIES PAINS/SI/AVH/HI. CONTINIT OF BOWEL AND BLADDER. SHE IS COOPERATIVE WITH CARE A HYPER VERBALE. Q 12MINUTES CHECKS ON GOING. BED IS LOW, LOCKED AND ALARMED.
--- NOTE | 2021-03-01 11:55 | NUR ---
RT Progress Note- Patrica has shown minimal involvement in the milieu since her admission and isolates to her room much of the time. She has told HEAD OF TALENT MANAGEMENT that she feels as if she cannot socialize with the other pts d/t cognition, despite being introduced to pts of similar functionality. ("I usually keep to myself") She is intermittently present in recreation therapy groups but primarily observes. Of note, pt is observed to react better when given choices rather than "you must" directives. HEAD OF TALENT MANAGEMENT will continue to encourage further presence and participation throughout her admission.
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
[2021-03-01 18:11] VITALS: BP 137/68
--- NOTE | 2021-03-01 18:59 | NUR ---
Resummed pt care from overnight shift this morning. Client presented with a fixed and flat expression and was withdrawn and isolated during this shift. Client presented oriented 2x, but was not able to place situation or year. Client denied any depression and had moderate anxiety and restlessness as shown by constant movement and leg shaking. Client seroquel changed to a slightly higher dose TID for this restlessness. Client denied hallucinations but has been looking for her dog, poohbear, and thinks she has lost him in the building. Client denied any suicidal and homicidal thoughts though was withdrawn. Q12 minute checks were done per usual. Client lung sounds clear. Last BM noted was two days ago- client is continent but cannot remember last BM on her own accord if asked. Client took all medications with out issue. No further concerns.
[2021-03-01 19:25] VITALS: BP 121/68
[2021-03-01 22:18] VITALS: BP 121/68
--- NOTE | 2021-03-02 01:51 | NUR ---
Patrica appeared to be asleep when this RN went to give pt her HS medications. At that time pt was alert and oriented to self only and appeared fairly confused. She was disorganized in her thought process and was forgetful during our conversation. When this RN handed pt her medications she expressed "I'm confused" and acted as though she was not sure what she was supposed to do with these pills. Education and instructions given. Pt spit out a pill and through it across the room, but then was compliant with retaking it. She was slightly irritable during our interaction. She denied symptoms of anxiety but endorsed depression and stated she "sometimes" has thoughts that things would be better off if she could go to sleep and not wake up, but denied ever having a plan and contracted for safety. She denied pain and any physical complaints/symptoms at this time, will continue to monitor.
[2021-03-02 09:23] VITALS: BP 134/78
--- NOTE | 2021-03-02 19:40 | NUR ---
Patient care resummed; patient located in bed resting comfortably; Patient has been calm, cooperative, and pleasent throughout shift; Appears withdrawn, anxious, confused and delusional; Patietn denies SI/HI/AVH, Pain, Anxiety, Depression; Patient continues to state shes stuck here because of her "Evil Brother." Patient education given although not successful; Lung sounds clear bilaterally, unlabored; Abdomen soft, nondistended with bowel sounds present*4; VSS on Room Air; Alert only too self; with intermittment disorientaion to self as well; Patient was given morning medications and STICKER ON turned back to assit another patient out of room and STICKER ON visualized patient spiiting pills back out and attempting to "hide" them. Patient took medications after STICKER ON asked patient why she spit them out; Patient responded "Well I didn't know I did." Tremors noted during assessment; although during medication administration patient becomes spastic and states "I cannot help it, It just wont stop." Then once medications are taken, spastic epiodes stop. Will continue to monitior patient for safety and behaviors.
[2021-03-02 20:02] VITALS: BP 145/78
[2021-03-02 23:16] VITALS: BP 145/78
--- NOTE | 2021-03-03 04:51 | NUR ---
Patrica was alert and oriented to self only this shift; when asking pt orientation questions she stated "oh, I'm goint to fail this", in a jokingly manner. She presented as calm, cooperative, and pleasant. She appeared less irritable than previous shifts. She came to the nurses station at the beginning of the shift asking where her dog was, and pt stated "I ask that a lot, huh?". She was provided reassurance and told that her dog is with her brother. Pt was asking when she might be able to leave the hospital stating "I'm not on any medication and nothing is wrong with me". Educaiton provided regarding the D/C process. She was medication compliant this shift, taking her medications whole without difficulty. She did wander out of her room a couple times this shift and was forgetful as she required education regarding where her room was. Pt voiced some c/o R hip pain that radiated across her abdomin, stating "I'm always in pain"; tylenol PRN given per MAR with effectiveness. Pt denied all other physical complaints at this time, will continue to monitor.
[2021-03-03 09:51] VITALS: BP 137/81
--- NOTE | 2021-03-03 10:42 | NUR ---
Patrica was alert and oriented to self only this morning. She has been less isolative but appears more anxious/restless this morning. She has frequent quesitons about her discharge plan such as where will she go and details about her particular facility. She also appeared preoccupied with getting cigarettes and did not appear to comprehend the education provided that pt is not allowed to smoke while a patient at the hospital, but pt stated "well I've smoked since I've been in the hospital". She has been restless walking up and down the stern but has been pleasant upon approach. She did have some irritability first thing this morning but with continued education, redirection, and emotional support pt appears more comfortable on the unit. She is forgetful at times as she will forget where her room or the bathroom is and require reorientation. Pt was medication compliant, taking pills whole without difficulty. She also attended morning group. She denied any physical symptoms or discomfort at this time, will continue to monitor.
[2021-03-03 19:54] VITALS: BP 127/71
[2021-03-03 20:40] VITALS: BP 127/71
--- NOTE | 2021-03-04 02:44 | NUR ---
PATIENT WAS IN ROOM AT BEGINNING OF THE SHIFT. SHE WAS CONFUSED AND A/0X1. SHE STATES THAT SHE HASN'T BEEN ABLE TO SLEEP. SHE WAS DISORIENTED ON DAY AND NIGHT. SHE WAS UNABLE TO TELL ME WHERE SHE WAS AT (HOSPITAL). SHE SPEAKS WITH WORD SALAD D/T UNABLE TO CHOOSE CORRECT WORDS AND USUALLY CAN DECIPHER WHAT SHE IS TRYING TO COMMUNICATE. PATIENT WAS C/0 BACK PAIN AND STATES THE MATTRESS ON THE BED HURTS HER BACK. REPOSITIONED THE BED AND TRAMADOL PRN GIVEN WITH HS MEDS. PT LAID IN BED FOR AN HOUR OR SO AND WAS UP IN ROOM. SHE CAME OUT AND WANTED TO DRAW. PATIENT GIVEN MARKERS AND PAPER AND SHE SAT IN ROOM AND DAYROOM TO COLOR. SHE THEN BEGAN WALKING THE HALLS. SHE DENIES BEING TIRED. SHE HAS NOT HAD ANY BEHAVIORS, JUST RESTLESS. DENIES SI/HI/AVH. ROUTINE ROUNDS TO ASSESS SAFETY AND STATUS OF PATIENT. PATIENT AMBULATES WITH STEADY GAIT. CONTINUING TO MONITOR.
--- NOTE | 2021-03-04 04:23 | NUR ---
PATIENT BECOMING MORE IRRITABLE SHE STAYS AWAKE. UNABLE TO FIND HER ROOM AND SHE COMES OUT OF HER ROOM TO THE NURSE STATION AND STATES SHE CAN'T FIND HER ROOM OR THE RESTROOM. DURING 12 MINUTE ROUNDS FOUND PATIENT SITTING FULLY CLOTHED ON NEXT DOOR PATIENT'S BATHROOM. WHEN ASKED WHAT SHE WAS DOING SHE STATED SHE WAS SITTING WHERE I TOLD HER TO SIT. I KINDLY TRIED TO LEAD HER BACK TO HER ROOM AND SHE WAS IRRITABLE AND SAYING HOW STUPID I WAS BECAUSE SHE WAS DOING WHAT SHE WAS TOLD TO DO. REDIRECTED PATIENT BACK TO HER ROOM WHERE SHE SAT ON BED TO DRAW SOME MORE. PATIENT OUT WALKING HALLS AND WENT INTO ANOTHER PATIENT'S ROOM AGAIN. PATIENT REDIRECTED BACK TO HER ROOM. PATIENT DELUSIONAL AND SPEAKS OF ANGUS AND IVETT AND WANTING TO KNOW HOW THEIR MARRIAGE IS GOING AND IF I'VE SEEN THEM. SHE IS INCREASING WITH ANXIETY SHE STATES SHE WANTS HER LIFE BACK AND THAT HER AND "POOH BEAR" WERE DOING JUST FINE BEFORE A LADY CAME INTO HER LIFE AND TOOK HER LIFE AWAY. SHE STATES THE DOG NEEDS SPECIAL CARES DONE AND SHE IS WORRIED. I EXPLAINED THAT THE SOCIAL WORKERS AND DR ARE AWARE AND WORKING ON THINGS. TOLD HER SHE COULD SPEAK WITH THE DR THIS MORNING WHEN HE COMES IN. PATIENT AWAKE AND APPEARS WIRED. SHE IS DRESSED ECCENTRICALLY. SHE IS USING A PAIR OF PANTS A BLANK AND WEARING A SCRUB SHIRT BACKWARDS AND INSIDE OUT. PATIENT WALKS WITH A STEADY GAIT. PATIENT HAD MARKERS OUT ON TABLE IN HER ROOM AND DID NOT PUT LIDS BACK ON SOME AND SOME HAD THE WRONG COLORED LIDS ON THEM. PT SITTING QUIETLY FOR MOMENT IN HER ROOM.
--- NOTE | 2021-03-04 07:20 | NUR ---
03-04-2021--0700--Spoke to patient who was in the dayroom. She states she mittal a good night and then started mumbling. I asked hr what she said and she reports she is "trying to get back wih my ex-". It's unclear if she was talking to him when she was mumblng.
--- NOTE | 2021-03-04 10:43 | NUR ---
Followup: remains on [facility]. Intake has improved especially for breakfast now that food preferences are identified. >75% breakfast and 30-85% other meals. 165 lb initial wt was an error. Reweigh 149 lb which is still 23 lb above pts usual wt stated. Continue regular diet. Low nutrition risk
[2021-03-04 12:14] VITALS: BP 153/82
[2021-03-04 13:46] VITALS: BP 153/82
--- NOTE | 2021-03-04 18:03 | NUR ---
Resummed pt care from overnight shift this am. Client was agitated and irritable during this shift, rapidly changing moods and becoming hostile with staff- she would yell, follow staff, and scream at other clients in addition to threatening both staff and clients. Client was oriented x1 at this time, but was not able to voice date, situation, or place as she usually can. Client was noticeably agitated, and claimed that staff took her dog, Stacey at this time, and were keeping him in a cage behind the desk. Client became fixated on this dog, and continued to yell at staff. Client given prn tramadol to see if a decrease in pain would help with behaviors, in addition to being given her normal medication. Behavior continued, and client continued to threaten staff and not allow staff to assess her as she stated that she would iesha and get a sound installation worker. PRN ativan 1 mg and haldol 5 mg oral was ordered by Dr. Francisco at this time. Client took both of these medications without issue. Restlessness significantly decreased at this time, and client slept in [facility] in activity area for two hours. Client assessed at this time. Lung sounds clear. Bowel sounds present. Last BM 03/01 per shift report. MOM given to help with bowel movements. Internal stimuli appears decreased as client is not talking to herself as much and is resting and watching tv. No further concerns at this time.
[2021-03-04 19:35] VITALS: BP 137/82
[2021-03-04 20:22] VITALS: BP 137/82
[2021-03-05] VITALS (8 sets, daily range): BP systolic 99–148; BP diastolic 64–76
--- NOTE | 2021-03-05 01:26 | NUR ---
PATIENT CARE WAS RESUMED AT 1900. SHE WAS IN THE DININIG AREA ON MAXINE-CHAIR. CALM AND COOPERATIVE WITH CARE. SHE TOOK HER MEDS WHOLE AND SHE IS ABLE TO VERBALISE SOME NEEDS. SHE IS A MODERATE ASSIT WITH CARE. BS ACTIVE X4QUAD. ABD IS SOFT AND NONE TENDER. SHE DENIES PAINS/SI/AVH/ HI. AMBULATES AND CONTINET OF BOWEL AND BLADDER. SHE IS ON FALL PRECAUTION, BED IS LOW, LOCKED AND ALARMED.
[2021-03-05 14:59] LABS: ABSOLUTE NEUTROPHILS 7.3 thou/uL (1.4-8.2); BASOPHILS 0.3 % (0.0-2.0); EOSINOPHILS 2.2 % (0.0-3.0); HEMATOCRIT 44.2 % (37.0-47.0); HEMOGLOBIN 14.1 gm/dL (12.0-15.0); LYMPHOCYTES 22.6 % (24.0-44.0); MCH 31.5 pg (26.0-34.0); MCHC 31.9 g/dL (28.0-37.0); MCV 98.8 fL (80.0-100.0); MONOCYTES 0.6 % (1.0-8.0); PLATELET COUNT 332 thou/uL (150-400); POLYS 74.3 % (36.0-66.0); RBC 4.47 mil/uL (4.20-5.00); RDW 15.2 % (10.5-14.5); WBC 9.8 thou/uL (4.0-11.0)
[2021-03-05 15:02] LABS: CALCIUM 10.4 mg/dL (8.5-10.1); CREATININE 0.8 mg/dL (0.6-1.0); POTASSIUM 4.2 mmol/L (3.5-5.1)
--- NOTE | 2021-03-05 15:18 | NUR ---
1410 Pt trying to repeatedly trying to get up from chair. Allowed her to get up and walk to her room with me holding her hands in front of her d/t unsteady gait. When about [address] her room pt stopped and I allowed her to rest. She then jerked suddenly and sat on the floor and stated, "I'm going to hurt you and me." Asked for WC. Pt able to sit up and then lifted up into the WC with 2 staff. Chair alarm placed under pt. Currently sitting in WC in day room with peers.
--- NOTE | 2021-03-05 18:26 | NUR ---
UA ordered per Dr. Francisco. Specified that he wanted straight cath. Straight cath done with female straight cath kit, only retrieved several drops yellow urine, clear. Bladder scan done--670 cc. Straight cath repeated with red kinney cathetar--850 cc clear yellow urine. Bladder scan repeated t/o cathetarization--36 cc, 105 cc and 0 cc. Pt calm and cooperative t/o procedure. Placed back in recliner, sleeping without s/o distress.
[2021-03-05 18:49] LABS: URINE BILIRUBIN NEGATIVE (Negative); URINE BLOOD NEGATIVE (Negative); URINE CLARITY SL CLOUDY; URINE COLOR YELLOW; URINE GLUCOSE-RANDOM* NEGATIVE (Negative); URINE KETONES TRACE (Negative); URINE LEUKOCYTES-REFLEX NEGATIVE (Negative); URINE NITRITE-REFLEX NEGATIVE (Negative); URINE PROTEIN (DIPSTICK) NEGATIVE (Negative); URINE SPECIFIC GRAVITY 1.025 (1.005-1.035); URINE UROBILINOGEN 0.2 E.U./dl (0.2-1.0)
--- NOTE | 2021-03-05 19:20 | NUR ---
Patient care resummed; patient located in her room in bed resting comfortably; patient A&O*1; Calm & plesent; Patient presented to PIN DRAFTER OPERATOR drowsy, and presented more lethargic this morning; Patients Lung sounds clear, unlabored; Abdomen soft, nonistended with bowel sounds present*4; bruising noted to have bruising to the upper bilateral extremities; PIN DRAFTER OPERATOR unable to assess SI/HI/AVH, Depression, Anxiety due to patient increase in sleepiness; Patient states she has pain in her back which states to be chonic from prior reports from patient; Patient does not present with S/O acute distress. Will continue to monitior patient for safety and behaviors;
--- NOTE | 2021-03-05 19:27 | NUR ---
Patient bed alarm activated at 0910; staff began moving towards patients room; A sound came from the room of a possible fall; staff enters room, patient located on the Floor on her Left side at the foot of the bed; Patient appears drowsy, and disoriented: Patient V/S obtained- BP:148/76 HR:97 T:96.8 O2:96% R:18 MAP:100 Blood Sugar: 104 Pupils equal and reactive; L&R measure at 3mm Injury noted to the Left posterior side of the head; A golfball sized Hematoma was palpated; No signs of skin tears or new bruising/redness Lung sounds clear, unlabored; Abdomen soft, nondistened with bowel sounds present*4; All extremities assessed with full ROM; Tremors/Tics noted before and after fall; assessed patient along side ENGINEERING SPECIALIST; CT Scan order for precautions due to Hematoma to the head; paged and informed of patient fall; Labs were ordered, Orthostatic V/S, and a 500cc bag of N.S. 0/9% to be infused. ENGINEERING SPECIALIST started a 22G IV to the Right AC at 1200 starting IV Fluids at 1230 at 500cc/hr. Patient tolerated fluids with S/O distress, IV was D/C after fluids were completed, @1345; Labs reviewed; UA was then ordered via straight cath; Urine collected and sent to lab. Medications have been reviewed post fall, with making changes; ENGINEERING SPECIALIST held midday medications due to sedated like apperances; Patient later came around about 1600, and began getting restless; and kept attempting to get up by herself, patient visualized still to have a very unsteady gait; Lap justin was ordered for patient safety; Patient denied pain at 1600; and has been placed on High fall risk precautions; and Orthostatic Precautions; Post Fall Orthostatic V/S: @1045 Sitting: BP:104/69 MAP:84 O2:96 HR:92 T:97.2 Standing: BP:99/65 MAP:76 O2:92 HR:93 Laying: BP:116/69 MAP:81 O2:96 HR:94 Patient did verbalize to staff, that "I just lost my balance/footing." Will continue to monitior patient for S/O distress, safety, and behaviors.
--- NOTE | 2021-03-06 03:00 | NUR ---
PATIENT CARE WAS RESUMED AT 1900. SHE WAS IN THE DININIG AREA. SITTING ON THE RECLINER. SHE IS AWAKE, ABLE TO COMUNICATE NEEDS. LINGS ARE CLEARBS ACTIVE X4 QUADS. SHE IS ABLEVERBALIZE HER NEEDS. TOOK HER MEDS WHOLE. SHE DENIES PAINS/SI/AV/HI. SHE IS A MAX ASSIST WITH CARE. PATINET IS CALM, NEAT AND CONTINIET OF BOWEL AND BLADDER.
[2021-03-06 11:04] VITALS: BP 139/82
--- NOTE | 2021-03-06 12:11 | NUR ---
03-06-2021--1366--Attended team meeting this date. Patient fell yesterday. She has been very restless, assualtive and scratching people. Will be here over the weekend I spoke with her brother with the doctor who told him she will be here over holiday and told him some of the issues she is having. He asked about a state hospital if [facility] "kicked her out for those behaviors". Advised [facility] no longer have [facility]. Made appointment for meeting (on Phone) for 03/11/21 at 2:00 PM for an update.
--- NOTE | 2021-03-06 15:18 | NUR ---
RECEIVED CALL FROM LAB STATING PATIENT TESTED PISITIVE FOR COVID. PATIENT'S NURSE, DR. KRUEGER, AND RUG UNDERLAY MACHINE OPERATOR AWARE.
[2021-03-06 17:41] VITALS: BP 127/100
--- NOTE | 2021-03-06 19:42 | NUR ---
Patient care resummed; patient located in the day room seated in a GeriChair; patient presents restless, irritable, manic; Patient is on high fall precautions, but refuses to sit on a chair alarm; Patient full alarm out and throughs it; D/C high fall risk precautions @1040 due to patient being non-compliant with interventions, nondirectable, and becomes assaultive with staff when interventions are inforced; Lung sounds clear, although diminished; Abdomen soft, nondistended with BS*4Q; VSS on RMA; Orthostatic precautions are still in place; Meal/Medication compliant; VACCINE SPECIALIST did PCR on patient this morning at 1100; results came back as critical results @1515 as a Positive result for COVID19. Patient moved from dayroom to personal room, isolation precautions placed, 1:1 active, bed alarm was set, although patient up, pacing the room. Patient became combative with staff when enforcing she could not leave her room; patient manic, began climbing through peep door that 1:1 was sitting across for supervision; Patient was initally singing; then began screaming and yelling, when staff began to try to calm the patient, patient began being assultive to VACCINE SPECIALIST and WET FINISHER; Geodon 15mg ordered via IM; patient calmed down enough when arrived to unit; Mannual hold not used for administration;
--- NOTE | 2021-03-06 20:03 | NUR ---
Patient had witnessed fall @1645; Patient had recieved 15mg Geodon IM about 30minutes prior to fall; Patient up pacing the room, on active Isolation precautions; MANNEQUIN REFINISHER sitting outside the door in view of patients entire room; Patient educated on falls, and to please lay down; patient still noncooperative; Patient walking towards MANNEQUIN REFINISHER and states "I'm looking for Pooh-Bear" then stops, looks up at MANNEQUIN REFINISHER; and drops to her knees; patient states to MANNEQUIN REFINISHER "I don't know what happened." MANNEQUIN REFINISHER was unable to reach patient before patient got to the floor; patient denies pain after fall; skin assessed, and no S/O injury; V/S present as BP:127/100 HR:116 MAP:105 T:97.3 O2:92% informed, was paged, Nurse Elmer Loredo informed, Charge nurse informed; Interventions updated, Report given to oncoming shift; Patient active 1:1 while awake at all times; Post fall assessment completed; Will continue to monitior patient for safety/behaviors:
--- NOTE | 2021-03-07 03:11 | NUR ---
PATIENT RESTING IN HER ROOM WITH MHT OBSERVING 1:1. PATIENT HAS REPORTEDLY HAD MULTIPLE FALLS OVER THE PREVIOUS COUPLE OF DAYS. PATIENT IS AAOX1. CONTINUOUSLY ASKS WHY SHE IS IN THE HOSPITAL AND ABOUT WHERE HER DOG IS AT. PATIENT EXHIBITS SOME IRRITABILITY AND AT ONE POINT TOLD STAFF TO GET THE HELL OUT OF THE HALLWAY. SHE WAS COMPLIANT WITH MEDICATIONS. PT HAS RECEIVED DIAGNOSIS OF TESTING POSITIVE FOE COVID. PT EXHIBITS NO S/S OF RESPIRATORY ISSUES NOR S/S IF INFECTION. ALL SAFETY PRECAUTIONS ARE IN PLACE. SHE WOKE UP ABOUT 0100 COMPLAINING OF SOME ANXIETY AND TROUBLE SLEEPING. NOTIFIED PROVIDER EXTRACTOR PLANT OPERATOR. ONE TIME TRAZADONE 50MG GIVEN. WILL CONTINUE TO MONITOR FOR CHANGES IN STATUS.
[2021-03-07 10:51] VITALS: BP 136/67
[2021-03-07 12:11] VITALS: BP 135/81
[2021-03-07 12:14] VITALS: BP 137/84
[2021-03-07] MEDS ORDERED: SEROQUEL 50 MG50 MG PO (12:37)
[2021-03-07 12:55] VITALS: BP 145/88
[2021-03-07 14:31] VITALS: BP 161/96
--- NOTE | 2021-03-07 15:05 | NUR ---
Alert and orientated to name only. Confused speech and at times has coherent statements. No speech or behavior suggestive of SI/HI. Restless at times, able to ambulate around room with assistance. Quiet and drowsy at other times. One episode prior to transfer where she became agitated and geodon was ordered but then she calmed down and was cooperative and compliant. Geodon not given. COVID positive this AM, continued isolation. Breath sounds clear. States she feels like she has a cold. No nasal flaring or retractions. O2 sats 94-100%. Reg HR auscultated. Color pink with brisk capillary refill and palpable peripheral pulses. Active bowel sounds over soft, rounded abdomen. BM last night per report. Yellow urine per toilet per report. Bladder scan done X3--78-81. Slightly unsteady gait, remains on fall precautions. Transferred to [facility] to [facility] per [facility]. No s/o distress. Able to transfer to bed without difficulty with one staff assist.
--- NOTE | 2021-03-08 10:37 | D ---
[facility] [place] [address] DISCHARGE SUMMARY Name: ÓSCAR BAILEY Room #: 518B-B DIS IN M.R.#: [id number] Admission: 02/22/21 Attend Phys: Fortino Francisco DO Discharge: 03/07/21 Date of : 43 Report #: [id number] THIS REPORT FOR: cc: Rasheed Decker MD, Michael E. MD Kerstein, Andrew H. DO ~ DATE OF SERVICE: 03/07/2021 INPATIENT PSYCHIATRIC DISCHARGE SUMMARY Attending: Fortino Francisco D.O. Oral And Maxillofacial Pathologist Patricia Mata M.D. DISCHARGE DIAGNOSES: COVID-19 positive x 2 consecutive PCRs, major neurocognitive disorder, likely due to Alzheimer's disease with behavioral disturbance. Additional morbidities include recent fall occurred due to orthostatic hypotension from medication effects and oral intake. The patient is being discharged to the [address] [place] [address] Unit at [facility]. DISCHARGE MEDICATIONS: Include baclofen 5 mg oral 3 times a day, aspirin 325 mg oral daily, baclofen for muscle spasms, aspirin for heart protection, gabapentin 100 mg oral 3 times a day for neuropathic pain. She is on Seroquel 125 mg oral 3 times a day for impulse control. The patient's diet is regular. Recommend daily blood sugar checks, up with assist. Recommend physical therapy evaluation. LABORATORY DATA: Significant laboratories during this psychiatric admission include hematology on 03/08, white count ____, H and H 14.1 and 44.2, platelet count 332. Chemistries from 03/05, sodium 145, potassium 4.2, chloride 107, bicarbonate 29, anion gap 9, BUN 15, creatinine 0.8, estimated GFR 70, glucose 104, calcium 10.4 on 03/05, A1c is 5.7. TSH 1.158. Urinalysis showed trace ketones, otherwise normal. The patient had been on Depakote and her dose was 375 mg p.o. b.i.d. It looks like I actually accidentally omitted that from her discharge medications, so we will make sure that is back on during her medical unit stay. REASON FOR ADMISSION: Back on the 01/25, a 76-year-old female residing in Memory Care at [facility]. The patient evidently had been combative to staff at [facility]. Apparently, she was found smoking in her room more than once. Shge was not bale to be easily redirected. She was verbally and physically aggressive towards custodial staff. HOSPITAL COURSE: The patient was admitted to Geriatric Psychiatry Unit. We increased her Depakote, started her on Seroquel as well. The patient has poor insight. Unfortunately, during surveillance, COVID tests, the patient came [address] [address] DISCHARGE SUMMARY Name: LYNNÓSCAR Angelique Room #: 518B-B DIS IN M.R.#: [id number] Admission: 02/22/21 Attend Phys: Fortino Francisco, Discharge: 03/07/21 Date of : 43 Report #: [id number] positive on 03/06 and was repeat positive on the 03/07. She had a head CT done on 03/05 due to a fall, which was no acute process found, so it is unclear how she contracted COVID-19. We really cannot do adequate isolation on the Geriatric Psychiatry Unit necessitating the medical admission. PHYSICAL EXAMINATION: VITAL SIGNS: On day of discharge are as follows: Temperature 37.3, pulse 91, respirations 18, BP , O2 sat 97%. MUSCULOSKELETAL: In chair, sitting in her room. ____ she did require some brief physical restraint prior to her medical discharge ____. MENTAL STATUS EXAMINATION: Well-developed, ill-appearing female, apparently stated age. Attention and concentration limited. Speech normal in rate. Thought process: Linear and goal directed. Thought content focused on being kept in her room. Denied self-harm intent. She would become assaultive when she would try and leave the room and staff would stop her. Memory not formally tested and being impaired. Insight and judgment impaired. Fund of knowledge well below average. PROGNOSIS: For this patient is guarded given her advanced dementia and age of 76 and now COVID positivity. There will be no CL consultation available on Thursday, Thursday, Thursday due to [place] weekend. I discussed Dr. Mata calling me if need be for advice of the case. <ELECTRONICALLY SIGNED> By: Fortino Francisco DO 03/08/21 1037 1518 1944 Fortino Francisco, /nt
== END 2021-03-07 14:00 | disposition short-term general hospital (02) | DRG 56 ==
LOC: SBH 17:33
PROVIDERS: Hospitalist; ADMIT Psychiatry & Neurology Psychiatry; ATTEND Psychiatry & Neurology Psychiatry
DX: G30.9 Alzheimer's disease, unspecified (principal); F01.51 Vascular dementia, unspecified severity, with behavioral disturbance; U07.1 COVID-19; F02.81 Dementia in other diseases classified elsewhere, unspecified severity, with behavioral disturbance; R45.6 Violent behavior; Z20.822 Contact with and (suspected) exposure to COVID-19; M06.9 Rheumatoid arthritis, unspecified; M79.7 Fibromyalgia; K21.9 Gastro-esophageal reflux disease without esophagitis; D64.9 Anemia, unspecified; E78.5 Hyperlipidemia, unspecified; I10 Essential (primary) hypertension; F41.9 Anxiety disorder, unspecified; F17.210 Nicotine dependence, cigarettes, uncomplicated; F32.9 Major depressive disorder, single episode, unspecified; Z79.82 Long term (current) use of aspirin; Z88.1 Allergy status to other antibiotic agents; Z88.8 Allergy status to other drugs, medicaments and biological substances; Z79.899 Other long term (current) drug therapy
CPT/HCPCS: 10880

== ENCOUNTER 2021-03-07 15:14 | Inpatient (IN) | payer OTHER, MEDICARE ==
[~2021-03-07] VITALS: Ht 165.1 cm; Wt 64.1 kg
[2021-03-07 14:18] VITALS: BP 161/96
[~2021-03-07 15:14] MED LIST changes: +SEROQUEL 50 MG50 MG PO
[2021-03-07 15:59] VITALS: BP 106/62
--- NOTE | 2021-03-07 18:09 | NUR ---
Patient arrived on floor at approximately 1418. Patient is alert to self and knows she is where she didnt want to be brought. Patient is appears to be extremely adgitated and uncooperative. Patient has since arriving on the floor atempted to dismantle the charting computer and the tv. Patient attempted to pull television from the wall. Patient threw her cup of ice water at the RETIREMENT SPECIALIST assigned to sit with her related to her increased incidence of falling. Patient has yellow socks on, bed alarm was active but was shut off as patient would not stay in the bed. Patient has a sitter present at this time. Patient was given a one time dose of olanzapine per order. Medication appears to be in effective at this time. This RN attempted to give patient prescribed medications at 1800. Patient refused to take medication at this time. Patient took pill and threw it at this nurse. Patient is on enhanced precautions. She is on room air. Patient is a med- surge patient. Patient has been continent of urine this shift. This RN was unable to attempt IV insertion in patient to do increased adgitation and uncooperativeness. Patient will continue to be monitored.
[2021-03-07 20:14] VITALS: BP 140/85
[2021-03-08 03:50] VITALS: BP 109/49
[2021-03-08 16:10] VITALS: BP 138/83
[2021-03-08 19:27] VITALS: BP 159/97
[2021-03-09 03:53] VITALS: BP 157/115
--- NOTE | 2021-03-09 06:18 | NUR ---
PT IS ALERT TO SELF, IS CONFUSED AND FORGETFUL. CURRENTLY ON RA. NO TELE OR IV PRESENT. PT IS CURRENTLY ON RESTRAINTS AND HAS 1:1 SITTER. PT WAS RESTLESS & AGITATED OVERNIGHT AND REQUIRED PRN DOSE OF ZYPREXA. RELIEF NOTED. WILL CONTINUE TO MONITOR PATIENT.
[2021-03-09 08:10] VITALS: BP 175/104
--- NOTE | 2021-03-09 15:13 | HC ---
[facility] [place] [address] CONSULTATION Name: ÓSCAR BAILEY Room #: 349-I ADM IN M.R.#: [id number] Admission: 03/07/21 Attend Phys: Patricia Mata MD Discharge: Date of : 43 Report #: [id number] THIS REPORT FOR: cc: Rasheed Decker MD, Michael E. MD Kerstein, Andrew H. DO ~ DATE OF SERVICE: 03/08/2021 INPATIENT PSYCHIATRY CL CONSULTATION PRIMARY ATTENDING: Dr. Patricia Mata. CONSULTING PSYCHIATRIST: Fortino Francisco DO REASON FOR MEDICAL ADMISSION: COVID-19 positive and on the Geriatric Psychiatry Unit, therefore, needing specialist medical isolation, it is not available where she was. REASON FOR CONSULTATION: Today is agitation, assaultiveness in the medical isolation room. SOURCES OF INFORMATION: Interview with the patient, discussion with her one-to-one, nursing staff, and correspondence with Dr. Mata. CHIEF COMPLAINT: Unspecified. HISTORY OF PRESENT ILLNESS: This is a 76-year-old female known to me from a very recent admission on [facility] in [facility]. The patient has a fairly advanced Alzheimer's dementia and we have been working to stabilize her with Seroquel and Depakote regimen. Unfortunately, she has become COVID-19 positive with serology positive on the 03/06 and 03/07. The patient had previously been negative on 12/26 and 02/27. The patient today is confused in her room, walking about. She does not know the day or date. She knows she is in some kind of medical facility. The patient, I found in review of her medications, was on 4 mg of Decadron b.i.d. I have recommended to Dr. Mata to consider discontinuing that as that is highly psychosis, sara, agitation generating medication. She had been on 375 mg b.i.d. of Depakote. I have increased that to 500 mg b.i.d. We should do a blood level in about 4 days. I will go ahead and order that. Regarding her antipsychotic, she has gotten a mixture of Seroquel and Haldol. I went ahead and discontinued the Haldol and Seroquel and I am going to put her on a scheduled olanzapine regimen 10 mg 3 times a day with 10 mg IM if she refuses, the IM should obviously be forced. Regarding her current laboratories, most recently done on 03/05, white count 9.8, H and H 14.1 and 44.2, platelet count 332. Chemistry: Sodium 145, [facility] [address] [place] [address] CONSULTATION Name: ÓSCAR BAILEY Room #: 349-I ADM IN ..#: [id number] Admission: 03/07/21 Attend Phys: Patricia Mata MD Discharge: Date of : 43 Report #: [id number] potassium 4.2, chloride 107, bicarbonate 29, anion gap 9, BUN 15, creatinine 0.8, estimated GFR 70. A1c 5.7. Calcium slightly high at 10.4, phosphorus 3.0, magnesium 2.3. AST 27, ALT 26, alkaline phosphatase 68. NT-proBNP of 677. Total protein 6.5, albumin 3.0. Cholesterol 303, LDL 218, HDL 52. TSH 1.158. Urinalysis on 03/05 showed trace ketones. Toxicology, she has not had a prior Depakote level. I reviewed her COVID serology. I briefly reviewed her past psychiatric history for completeness, but I would refer the reader to the evaluation done on 02/23 by my nurse practitioner. In any event, the patient was at [facility]. ALLERGIES: ROBERTH INHIBITORS, AMOXICILLIN, CLAVULANIC ACID, CYANOCOBALAMIN, FLUOXETINE, PYRIDOXINE, RIBOFLAVIN, AND LEVOMEFOLATE. PAST MEDICAL HISTORY: Includes GERD, fibromyalgia, hypertension, hyperlipidemia. PSYCHIATRIC HISTORY: Alcoholism, anxiety, depression. FAMILY HISTORY: Otherwise, noncontributory SOCIAL HISTORY: She has been a current everyday smoker prior to admission. REVIEW OF SYSTEMS: Cannot be reliably obtained today. VITAL SIGNS: Today, temperature 37.1, pulse 90, respirations 18, BP 109/49, O2 sat 99%. Let met see how her last EKG looks, last on 02/22/2021 normal rate 71, MT interval 230 milliseconds. She had a first-degree AV block. QT 350 milliseconds, QTc 389 milliseconds. PHYSICAL EXAMINATION: In hospital gown, unkempt appearance. Normal gait and station. MENTAL STATUS EXAMINATION: This is a well-developed, somewhat unkept, ill-appearing female. Attention and concentration fair to limited. Speech normal rate. Thought process: Linear and goal directed. Thought content focused on oppressive ideations, making references about being beaten, but there is no evidence of overt bruising or lacerations I can tell. Memory not formally tested, known to be impaired. Mood and affect constricted, irritable, congruent. Again denied, SI, HI, auditory, visual or tactile hallucinations. Insight and judgment limited. Fund of knowledge below average. [facility] [address] [place] [address] CONSULTATION Name: ÓSCAR BAILEY Room #: 349-I [facility]#: [id number] Admission: 03/07/21 Attend Phys: Patricia Mata MD Discharge: Date of : 43 Report #: [id number] FORMULATION: A 76-year-old female medically admitted due to COVID-19 positive status, currently becoming resistant with redirection. Asked to emergently see the patient. RECOMMENDATIONS: As stated, recommend discontinuation of Decadron unless absolutely necessary given its manic, psychosis, agitation generating qualities. Regarding other medications, discontinue haloperidol entirely as we are going to go with olanzapine. I increased her Depakote to 500 mg twice a day. We will discontinue her Seroquel as well. We will continue to evaluate and stabilize. Recommendation, continue one-to-one, encourage frequent redirection and keeping her busy with tactile activities. Recommend day/night reorientation, p.o. olanzapine which I scheduled at 10 mg at 9:00 a.m., 3:00 p.m. and 9 p.m. IM backup if she refuses. I would like to see how that works. I will follow along with the patient with you and see her for tomorrow. Time spent on this case about 45 minutes, greater than 50% of time reviewing records and coordination of care. <ELECTRONICALLY SIGNED> By: Fortino Francisco DO 03/09/21 1513 1413 19 Fortino Francisco, DO /nt
[2021-03-09 16:24] VITALS: BP 175/104
--- NOTE | 2021-03-09 17:32 | NUR ---
PT A/0 X 0. PT FLUCTUATES BETWEEN CALM AND AGITATED. PT REFUSED PO MEDICATIONS THIS AM, GAVE OLANZAPINE IM. SPOKE WITH PSYCH DR THIS MORNING AND HE SUGGESTED TRIAL OF RESTRAINTS TO BE TAKEN OFF. HAD TO PUT PT BACK ON RESTRAINTS SHE WAS GETTING VERY AGITATED. MONITORING PT FREQUENTLY. PT WITH 1 ON 1 SITTER ALL DAY. NO COMPLAINTS OF PAIN.
[2021-03-09 20:00] VITALS: BP 168/95
[2021-03-09 22:30] VITALS: BP 145/101
[2021-03-10 05:30] VITALS: BP 176/97
--- NOTE | 2021-03-10 06:23 | NUR ---
PT SLOWLY PROGRESSING TOWARD GOALS. ASSUMED CARE OF PT AT 1900, AT WHICH TIME RESTRAINTS HAD ALREADY BEEN DISCONTINUED BY OFFGOING SHIFT. ORDER FOR RESTRAINTS STILL IN PLACE, BUT RESTAINTS NOT REQUIRED THROUGHOUT THIS SHIFT. PT IS A&O TO SELF ONLY; OCCASIONALLY FOLLOWS COMMANDS, BUT RESPONSES TO QUESTIONS ARE INAPPRORPRIATE. PT RESTLESS AND AGITATED THROUGHOUT THE NIGHT, BUT WAS NOT ATTEMPTING TO EXIT BED. 1:1 SITTER PRESENT. PT WITH ELEVATED BLOOD PRESSURE AT BEGINNING OF SHIFT, CAME DOWN AFTER RECEIVING SCHEDULED ANTIPSYCHOTIC MEDICATION. ELEVATED AGAIN THIS AM, PROVIDER NOTIFIED, NO NEW ORDERS AT THIS TIME. PT WITH ELEVATED TEMP OF 100.3, PRN TYLENOL GIVEN, TEMP CAME DOWN TO 99.2. WILL CONTINUE TO OBSERVE FOR CHANGES
[2021-03-10 08:24] VITALS: BP 159/113
[2021-03-10 16:10] VITALS: BP 93/61
--- NOTE | 2021-03-10 18:22 | NUR ---
PATIENT IS ALERT TO SELF THIS SHIFT. PATIENT IS ON ENHANCED PRECAUTIONS. PATIENT IS ON ROOM AIR. PATIENT IS MED- SURGE STATUS. PATIENT HAS BEEN INCONTINENT OF URINE 3X THIS SHIFT. PATIENT IS REFUSING TO GET OUT OF BED AND GO TO THE TOILET. PATIENT TOOK ALL OF HER ORDERED MEDICATIONS THIS SHIFT. PATIENT HAS NOT BEEN IN RESTRAINTS THIS SHIFT. PATINET WILL CONTINUE TO BE MONITORED.
[2021-03-10 20:30] VITALS: BP 100/73
--- NOTE | 2021-03-11 00:55 | NUR ---
PT CONFUSED , IRRITABLE AND COMBATIVE WITH HS CARES AND MEDS. SHE GETS ANGRY WHEN ASKED TO SWALLOW PILLS OR FOLLOW ANT REQUESTS. BED DOWN. CALL LIGHT IN REACH. BED ALARM IS ON. WILL CONTINUE TO MONITOR PT FOR CHANGES.
--- NOTE | 2021-03-11 06:32 | NUR ---
PT CONFUSED. SITS UP AT BS. ATTEMPTS TO GET OOB WITHOUT HELP X2 TONIGHT. VSS. PROGRESSING TOWARDS D/C GOALS.
[2021-03-11 07:49] VITALS: BP 107/76
[2021-03-11 09:10] LABS: ABSOLUTE NEUTROPHILS 7.3 thou/uL (1.4-8.2); BASOPHILS 0.6 % (0.0-2.0); EOSINOPHILS 0.1 % (0.0-3.0); HEMATOCRIT 39.3 % (37.0-47.0); HEMOGLOBIN 12.9 gm/dL (12.0-15.0); LYMPHOCYTES 7.4 % (24.0-44.0); MCH 33.8 pg (26.0-34.0); MCHC 32.9 g/dL (28.0-37.0); MCV 102.6 fL (80.0-100.0); MONOCYTES 4.1 % (1.0-8.0); PLATELET COUNT 149 thou/uL (150-400); POLYS 87.8 % (36.0-66.0); RBC 3.83 mil/uL (4.20-5.00); RDW 14.3 % (10.5-14.5); WBC 8.3 thou/uL (4.0-11.0)
[2021-03-11 09:17] LABS: CALCIUM 7.7 mg/dL (8.5-10.1); POTASSIUM 3.4 mmol/L (3.5-5.1)
[2021-03-11 15:41] VITALS: BP 92/62
--- NOTE | 2021-03-11 16:07 | NUR ---
INITIAL ASSESSMENT: Received consult. KO reviewed chart and spoke with nursing and attending physician. Pt was admitted to 3 from [facility] unit due to COVID. Pt placed in Enhanced Isolation. Pt had 1:1 sitter upon admission. Sitter has been discontinued. Pt is afebrile and not on O2. Pt with hx of dementia. Pt was admitted to the [facility] unit on 02/23. Pt resides at [facility]. KO left voice message for the monorail charger operator at the facility to provide update. Would like to confirm with the facility that they are able to accept pt back when medically stable. KO is following to assist as needed with discharge planning.
--- NOTE | 2021-03-11 18:27 | NUR ---
PATIENT HAS BEEN ALERT TO SELF THIS SHIFT. PATIENT IS ON ENHANCED PRECAUTIONS. PATIENT IS ON ROOM AIR. PATIENT IS MED-SURGE. PATIENT HAS BEEN INCONTINENT OF BOTH BOWEL AND BLADDER THIS SHIFT. PATIENT IS ABLE TO GET UP WITH ONE ANGELA TO EITHER THE TOILET OR COMMODE BUT HAS REFUSED TO DO SO THIS SHIFT. PATIENT WILL CONTINUE TO BE MONITORED.
[2021-03-11 20:14] VITALS: BP 124/90
--- NOTE | 2021-03-11 20:15 | NUR ---
UP OUT OF BED TYRONE. ABOUT EVERY 15 MINUTES. SHE IS REQUESTING A CIGARETTE SHE COMPLAINS OF BACK PAIN. GAVE HER A TYLENOL. SHE IS RUMINATING ON HER NEED FOR HER POOH BEAR STUFFED TOY. SHE WANTS IT VERY BADLY
[2021-03-12 00:40] VITALS: BP 137/89
[2021-03-12 00:45] VITALS: BP 136/87
[2021-03-12 01:40] VITALS: BP 133/77
--- NOTE | 2021-03-12 02:13 | NUR ---
CONTINUES TO GET OUT OF BED FREQUENTLY. SHE WILL REST FOR A SHORT AMOUNT OF TIME, BUT IS ACTIVE AND WANTS TO BE UP AND ABOUT WALKING AROUND. SITTING AND LAYING DOWN AND WATCHING TELEVISION DO NOT SUSTAIN.
[2021-03-12 04:55] VITALS: BP 135/77
--- NOTE | 2021-03-12 05:18 | NUR ---
at approx. 0040. pt found sitting on the ground. she was not in any distress. she was curious about the bedside table and looking under her bed. she was asking about pooh bear her little dog. no injuries noted. she is not on any blood thinners. orientation remains at baseline. denies pain. prn dosage of zyprexa given after she was placed back to bed.
[2021-03-12 08:00] VITALS: BP 135/77
--- NOTE | 2021-03-12 11:09 | NUR ---
ORDERS FOR EVAL AND TREAT. WAS ABOUT TO GO INTO ROOM BUT OBSERVED Pt AMBULATING AROUND THE ROOM ON HER OWN WITHOUT DEVICES AND WITHOUT O2. OBSERVED HER BEND DOWN AND PICK OBJECT UP OFF OF GROUND. IN LIGHT OF Pt NOT COOPERATING WITH THERAPY, WILL CONTINUE TO ALLOW Pt TO AMBULATE AROUND ROOM ON HER OWN. DISCUSSED WITH NURSING AND THEY ARE IN AGREEMENT.
--- NOTE | 2021-03-12 13:41 | NUR ---
KO reviewed chart and spoke with nursing and attending physician. Pt remains in Enhanced Isolation due to COVID. Pt is afebrile and not requiring O2. Pt is ambulatory in her room. PT eval deferred. KO spoke with pt's brother/DPOA, Ruben, via phone. Introduced role of SW. Pt has lived at [facility] since November of 2019. Pt is normally independent with ambulation. Plan is for pt to return to [facility]. Case discussed with [facility] SW team. Pt to remain on 3W until out of Enhanced Isolation. SW is following to assist as needed with discharge planning.
--- NOTE | 2021-03-12 17:42 | NUR ---
PATIENT IS ALERT TO SELF. PATIENT IS ON ENHANCED PRECAUTIONS. PATIENT IS ON ROOM AIR. PATIENT IS NOT ON TELEMETRY AT THIS TIME. PATIENT HAS BEEN BOTH CONTINENT/ INCONTINET OF BOWEL AND BLADDER THIS SHIFT. PATIENT HAS NO SKIN ISSUES AT THIS TIME. PATIENT HAS NO IV ACCESS AT THIS TIME. PATIENT WILL CONTINUE TO BE MONITORED.
--- NOTE | 2021-03-13 06:09 | NUR ---
PT SLEEPS VERY LITTLE AND WALKS THE ROOM. SCHEDULED AND PRN GIVEN. VSS. 1:1 ONGOING. PT REDIRECTED MANY TIMES TO KEEP CLOTHES ON.
[2021-03-13 07:00] VITALS: BP 135/77
--- NOTE | 2021-03-13 07:35 | NUR ---
PT HAD A FALL LEAVING THE BATHROOM. WITNESSED BY THE 1:1 FROM THE OTHER SIDE OF THE CLOSED DOOR WITH A WINDOW. PT IS A/O TO SELF ONLY: CONFUSED, AGGITATED, COMBATIVE AND IMPULSIVE. NO INJURIES. REPORT GIVEN TO ON COMING NURSE.
[2021-03-13 08:56] LABS: HEMATOCRIT 42.8 % (37.0-47.0); HEMOGLOBIN 14.4 gm/dL (12.0-15.0); MCH 30.5 pg (26.0-34.0); MCHC 33.6 g/dL (28.0-37.0); RBC 4.73 mil/uL (4.20-5.00); RDW 13.4 % (10.5-14.5); WBC 7.7 thou/uL (4.0-11.0)
[2021-03-13 09:10] LABS: CALCIUM 9.7 mg/dL (8.5-10.1); CREATININE 0.9 mg/dL (0.6-1.0); MAGNESIUM 2.2 mg/dL (1.8-2.4); POTASSIUM 3.8 mmol/L (3.5-5.1)
[2021-03-13 09:12] LABS: MCV 90.5 fL (80.0-100.0)
[2021-03-13 11:19] VITALS: BP 135/77
--- NOTE | 2021-03-13 11:29 | NUR ---
SW reviewed chart and spoke with nursing and attending physician. Pt remains in Enhanced Isolation due to COVID. Pt is afebrile and on room air. Pt has 1:1 sitter at bedside. Repeat COVID test ordered today. Pt might be able to return to [facility] pending COVID test results and clearance from physicians. SW is following to assist as needed with discharge planning.
--- NOTE | 2021-03-13 17:34 | NUR ---
PT A/O X 1. PT EXTREMELY RESTLESS ALL DAY, PACING ROOM. PT IMPULSIVE. PT INCONTINENT X 1 THIS SHIFT. PT FELL AT BEGINNING OF SHIFT WHILE ATTEMPTING TO VOID IN BATHROOM. PT 1 ON 1 SITTER SITTING OUTSIDE OF ROOM WHILE FALL OCCURRED. PT HAS POOR APPETITE, EATING AND DRINKING VERY LITTLE. PT HAD PCR COVID SWAB ON 03/13 BUT STILL POSITIVE. FALL PRECAUTIONS IN PLACE AND SITTER AT BEDSIDE. WILL CONTINUE TO MONITOR.
[2021-03-13 20:00] VITALS: BP 115/76
[2021-03-13 20:45] VITALS: BP 115/76
--- NOTE | 2021-03-13 22:58 | NUR ---
PT REMAINS CONFUSED. RESTLESS IN BED AT TIMES. SHE IS UNCOOPERATIVE WITH TAKING HER PILLS AND MUST BE COAXED. PT REFUSED TO HELP WITH TURNING IN BED. SITTER OUTSIDE PT DOOR. NO SKIN BREAKDOWN NOTED. PT HAS POOR APPETITE AND REFUSED DINNER. BED DOWN. BED ALARM ANDRY. SITTER AT DOOR.
[2021-03-14 00:20] VITALS: BP 145/83
[2021-03-14 03:26] VITALS: BP 139/66
--- NOTE | 2021-03-14 06:15 | NUR ---
PT RESTING QUIETLY. VSS AFEBRILE. SATS WNL ON RA. PT DRANK 1 OJ THIS AM. 1:1 SITTER STILL OUTSIDE PT' RM. INC OF URINE TONIGHT IN LG AMTS.
[2021-03-14 10:33] VITALS: BP 139/66
--- NOTE | 2021-03-14 13:11 | NUR ---
SW reviewed chart and spoke with nursing and attending physician. Pt remains in Enhanced Isolation due to COVID. Pt is afebrile and on room air. 1:1 sitter at bedside due to behaviors. No weekend discharge planned. Pt to return to [facility] unit when out of isolation. SW is following to assist as needed with discharge planning.
--- NOTE | 2021-03-14 18:01 | NUR ---
RESUMED PT CARE THIS AM. PT SLEEPING MOST OF DAY AND UNABLE TO WAKE UP. REACTS TO NOXIOUS STIMULI. SPOKE WITH PSYCH DR ABOUT PT CONDITION AND DR TO DECREASE MEDICATIONS. PT AWAKE APPROX 1530 AND SPOKE TO THIS RN ASKING FOR WATER. VERY LITTLE FOOD CONSUMED TODAY DUE TO OVERSLEEPING. 1 ON 1 SITTER AT BEDSIDE THROUGHOUT SHIFT. PT INCONTINENT X 2 TODAY. PT TO DC FROM ISOLATION Thursday03/16/21. WILL CONTINUE TO MONITOR.
--- NOTE | 2021-03-15 03:45 | NUR ---
ASSUMED CARE AROUND 1900. PT IS ORIENTED TO SELF. SHE IS NOT ABLE TO PARTICIPATE IN MEANINGFULL CONVERSATION BUT ANSWERS SOME YES/NO QUESTIONS. PT HAS BEEN CALM BUT RESTLESS, SITTER HAS BEEN PRESENT TO PROMOTE SAFETY AND REORIENATION. NO ACUTE MEDICAL EVENTS. MINIMAL I&O
[2021-03-15 06:30] VITALS: BP 106/66
[2021-03-15 07:48] VITALS: BP 114/73
--- NOTE | 2021-03-15 08:02 | NUR ---
Sleeping without s/o distress. Awakens easily, responds to name only, obeys commands. Minimally resistant at times with cares, redirectable. No speech/behavior suggestive of SI/HI. Reg, even spontaneous resp without nasal flaring or retractions. O2 sat mid 90s. Breath sounds clear, bilaterally equal with good aeration. Reg HR auscultated. Color pink with brisk capillary refill and palpable peripheral pulses. HOTEL SERVICE SUPERVISOR reported that she was dry all night. Bladder scan done, showed >480 cc. Up to BSC, voided fair amt yellow urine. Repeat bladder scan 225 cc. Active bowel sounds over soft, rounded abdomen. Requiring assistance to BSC, gait slightly unsteady. Currently sleeping without s/o distress.
[2021-03-15 10:48] VITALS: BP 130/72
[2021-03-15 10:51] VITALS: BP 122/73
--- NOTE | 2021-03-15 17:19 | NUR ---
RESUMED CARE THIS AM. PT MORE CALM IN MORNING. THIS AFTERNOON PT BECAME VERY AGITATED, RESTLESS, KEPT ATTEMPTING TO GET OUT OF BED. PT SCREAMING FREQUENTLY. ADMINISTERED CHLORPROMAZINE IM WITH GOOD RESPONSE FROM PT. NO COMPLAINTS. WILL CONTINUE TO MONITOR.
[2021-03-15 18:44] VITALS: BP 135/86
--- NOTE | 2021-03-15 21:30 | NUR ---
PT WANDERING IN ROOM, ALERT AWAKE, CONVERSATION NON SENSICAL MUMBLED. PT REMAINS WITH SITTER, RECENT FALLS. PT COMPLIANT WITH MEDS AND SNACK. PT FOLLWOING REDIRECTION. PALE SKIN TONE. LUNGS CLEAR. OFF ISOLATION TOMORROW.
--- NOTE | 2021-03-16 04:08 | NUR ---
PT WILL DC FROM 3W AND ADMIT TO 522A THIS AM AROUND 0500.
--- NOTE | 2021-03-16 05:15 | NUR ---
PT DISCHARGED TO [facility]. REPORT PROVIDED TO ANAC RISTINA CHAND. PT TRANSPORTED IN W/C. PT HAD ALL OF HER BELONGINGS RETURNED WITH HER.
== END 2021-03-16 05:16 | DRG 177 ==
LOC: 3W 15:14
PROVIDERS: Hospitalist; Internal Medicine; ADMIT Hospitalist; ATTEND Hospitalist
DX: U07.1 COVID-19 (principal); J12.82 Pneumonia due to coronavirus disease 2019; F23 Brief psychotic disorder; F03.91 Unspecified dementia, unspecified severity, with behavioral disturbance; F01.51 Vascular dementia, unspecified severity, with behavioral disturbance; E44.0 Moderate protein-calorie malnutrition; K21.9 Gastro-esophageal reflux disease without esophagitis; I10 Essential (primary) hypertension; F17.210 Nicotine dependence, cigarettes, uncomplicated; F41.9 Anxiety disorder, unspecified; F32.9 Major depressive disorder, single episode, unspecified; M06.9 Rheumatoid arthritis, unspecified; E78.5 Hyperlipidemia, unspecified; Z79.82 Long term (current) use of aspirin; Z79.899 Other long term (current) drug therapy; Z88.1 Allergy status to other antibiotic agents; Z88.8 Allergy status to other drugs, medicaments and biological substances; Z68.23 Body mass index [BMI] 23.0-23.9, adult; Z28.21 Immunization not carried out because of patient refusal
CPT/HCPCS: 10779

== ENCOUNTER 2021-03-16 05:22 | Inpatient (IN) | payer OTHER, MEDICARE ==
--- NOTE | 2021-03-16 05:48 | NUR ---
Pt admitted to unit from 3W via w/c. Pt alert to name only. Pt calm et cooperative at admission. VSWNL. Health assessment with no abnormalities noted at present time. Report received from delivering nurse. Pt is incontinent, non-ambulatory, et takes medications whole without difficulty. Admission orders received from psych physician agronomy location manager. Hospitalist SHELLIE notified of admission. Message left on guardian's voicemail to call back et give consent for treatment. Pt is currently resting in bed with eyes closed. Will continue to monitor per unit protocol.
[2021-03-16 06:17] VITALS: BP 116/57
[2021-03-16 08:53] LABS: CHOLESTEROL 260 mg/dL (<200); HDL CHOLESTEROL 48 mg/dL (>40); LDL CHOLESTEROL 193 mg/dL (<100); TC:HDL 5.4 Ratio (Not establshd); TRIGLYCERIDE 97 mg/dL (<150); VLDL 19 mg/dL (<40)
[2021-03-16 08:57] VITALS: BP 118/65
[2021-03-16 08:59] LABS: SERUM ASSESSMENT Clear
[2021-03-16 10:00] VITALS: BP 118/65
--- NOTE | 2021-03-16 17:57 | NUR ---
Alert and orientated to name only. Talking about brother. Confused speech. Denies SI/HI. Cooperative and compliant. Breath sounds clear. Reg HR auscultated. Color pink with brisk capillary refill and palpable peripheral pulses. No edema noted. Brief dry. Active bowel sounds over soft, rounded abdomen. Ambulates with walker with slightly unsteady gait with assistance. Found in room walking around and walker knocked over. Moved to dining room and placed in chair and then recliner. Resistant and angry but then calmed down.
--- NOTE | 2021-03-17 00:17 | NUR ---
At onset of oim consultant pt was sitting in xin chair in day room. Pt was alert and oriented only to self. Pt was compliant with medication when medication was added to applesauce. Pt requested medication for neck pain; received tylenol. While sitting in day room, pt talked to herself and appeared to be hallucinating. Speech was disorganized and at times responses to questions were nonsensical. Pt was placed into bed by staff. Pt is a high fall risk. Fall precautions are in place. Will continue to monitor.
[2021-03-17 08:56] VITALS: BP 126/86
--- NOTE | 2021-03-17 18:16 | NUR ---
HAS HAD EPISODES OF RESTLESSNESS/AGITATION THROUGHOUT SHIFT. NEEDS ALMOST CONSTANT REDIRECTION TO NOT ATTEMPT TO PULLON CHAIR ALARM. AT ONE POINT HAD CHORD WRAPPED AROUND UPPER ARM AND WAS ATTEMPTING TO PUT CONTROL BOX DOWN HER PANTS-ATTEMPTING SEVERAL TIMES TO GET UP ON OWNAND DID BECOME COMBATIVE WITH COMPLAINT SUPERVISOR WHEN SHE ATTEMPTED TO ASSIST WITH AMBULATION GAIT IS VERY UNSTEADY. SOME SHORTNESS OF BREATH NOTED WITH MINIMAL EXERTION-02 SAT CHECKED AND IS 97 PERCENT ON RA. GAIT UNSTEADY-REQUIRES ROLLER WALKER AND SBA X1-ABLE TO WALK ONLY VERY SHORT DISTANCE LENGTH OF DAYROOM BEFORE REUESTING TO SIT DOWN
[2021-03-17 19:44] VITALS: BP 122/80
--- NOTE | 2021-03-17 20:11 | NUR ---
Assumed care on 03/17/21 @ 1900, seated in the day room in a xin chair. Calm cooperative, reports that she is worried about her poo bear. Reminded that her brother is taking care of the dog, she voiced relief, then asked the question again in just a few minutes. Oriented X2 HRRR, Lungs CTA but diminished, ABD N x 4Q. Requests Tylenol for pain.
[2021-03-17 20:20] VITALS: BP 122/80
--- NOTE | 2021-03-17 22:56 | H ---
[facility] [place] [address] HISTORY AND PHYSICAL Name: ÓSCAR BAILEY Room #: 522A-A ADM IN M.R.#: [id number] Admission: 03/16/21 Attend Phys: Fortino Francisco DO Discharge: Date of : 43 Report #: [id number] THIS REPORT FOR: cc: Rasheed Decker MD, Michael E. MD Kerstein, Andrew H. DO ~ DATE OF SERVICE: 03/16/2021 INPATIENT PSYCHIATRIC EVALUATION ATTENDING PSYCHIATRIST: Fortino Francisco DO METER CALIBRATOR: Niels Coffey MD and his hospitalist team. This patient had been previously [facility] and discharged due to medical necessity as she was COVID-[address] Celeste had been her primary attending since 03/06 since she was moved to med/surg unit for airborne isolation. SOURCES OF INFORMATION: Telephone conversation with her brother and DPOA, Ruben. Ruben is currently in a RV headed to the [facility]. I did speak with him about 15-20 minutes before dictating this. He is okay with her readmission to Geriatric Psychiatry. CHIEF COMPLAINT: I "see the window." HISTORY OF PRESENT ILLNESS: This is a 76-year-old female with known dementia. The patient originally sent out from [facility] at [facility] due to dementia with behavioral disturbance picture. We had some challenges with stabilizing her behaviors and then unfortunately she tested positive around surveillance COVID-19 swab and then positive again second time prior to discharge to medical status. She is currently on 50 mg t.i.d. of chlorpromazine. REVIEW OF SYSTEMS: She was not able to give me a reasonably organized review of systems. I will hit some of the highlights from her admission back on the or so february. When she was originally sent out on 02/23 or so, she had been physically and verbally abusive towards staff, smoking in her room, left over stuff in the director of business applications office at the facility. ALLERGIES: ROBERTH INHIBITORS, AMOXICILLIN, CLAVULANIC ACID, PYRIDOXINE, RIBOFLAVIN, FOLATE, CALCIUM. MEDICAL HISTORY: Fibromyalgia, hypertension, hyperlipidemia, GERD. PSYCHIATRIC HISTORY: Alcoholism. She is sober now. anxiety, depression. [address] [address] HISTORY AND PHYSICAL Name: ÓSCAR BAILEY Room #: 522A-A ADM IN ..#: [id number] Admission: 03/16/21 Attend Phys: Fortino Francisco, Discharge: Date of : 43 Report #: [id number] Also, dementia certainly. FAMILY HISTORY: Noncontributory. SOCIAL HISTORY: She smokes when she can get hold of cigarettes, but certainly she should not be smoking. LABORATORY DATA: The patient's most recent lab work from 03/13 show CBC: White count 7.7, H and H 14.4 and 42.8, platelet count 282. Chemistry: Sodium 139, potassium 3.9, chloride 102, bicarbonate 24, anion gap 13, BUN 32, creatinine 0.9, estimated GFR 61. Estimated average glucose 117, A1c 5.7, calcium 9.7, phosphorus 3.0, magnesium 2.2, AST 27, ALT 26, alkaline phosphatase 68. Ammonia less than 10 on March 14. Albumin 3.0 on 02/23. Most recent labs on 03/16, triglycerides 97, cholesterol 260, LDL 193, HDL 48. TSH 1.158 on 02/23. Urinalysis 03/05 showed trace ketones, otherwise negative. Toxicology, last Depakote level was 83 on 03/13, which was considered therapeutic. COVID PCRs were negative earlier in February, and then positive on 03/07 and 03/13. PHYSICAL EXAMINATION: VITAL SIGNS: Today, temperature 35.9, pulse 100, respirations 18, BP 118/65, O2 sat 94%. Weight 63.049 kilograms. She is a no code. GENERAL: Seated in a Iris chair, legs elevated, in hospital gown. MENTAL STATUS EXAMINATION: Well-developed, disheveled, somewhat ill-appearing female. Attention limited. Concentration impaired. Speech soft, normal rate. Thought process: Linear and goal directed. Thought content focused on nonsensical things, also she does not know where she is at exactly, she did surprise me and knew it was New Year's Day, not know the year. Memory not formally tested. Insight and judgment impaired. Fund of knowledge well below average. FORMULATION: A 76-year-old female readmitted to the [facility] hoping to get behaviors back on track in place. 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 Behavioral disturbance maybe stabilized. The patient's medical comorbidities are history of COVID-19, rheumatoid arthritis, hyperlipidemia, fibromyalgia, spastic tics, gastroesophageal reflux disease, hypertension. PLAN: Admitted to [facility] to evaluate, stabilize, hospitalist consulted will be Dr. Niels Coffey who is covering now for Dr. Celeste. Regarding her psych meds, we will restart her on chlorpromazine 50 mg oral 3 times a day with 37.5 mg IM backup if she refuses, continue MiraLax [address] [address] HISTORY AND PHYSICAL Name: ÓSCAR BAILEY Room #: 522A-A ADM IN ..#: [id number] Admission: 03/16/21 Attend Phys: Fortino Francisco DO Discharge: Date of : 43 Report #: [id number] oral daily dissolved, aspirin 325 mg oral daily for heart protection, amlodipine 5 mg oral daily for hypertension, and continue house PRNs including ondansetron. Hopefully if we get a good several days of behavior, she may be discharged to [facility] in middle of next week that will be around 1/5. Time spent on this case, greater than 60 minutes, greater than 50% of the time was spent in review of records and coordination of care, including telephone conversation with her DPOA, and brother, Ruben who is traveling from [place] to the [facility]. STRENGTHS: Insured, has a placement. WEAKNESSES: Advanced dementia, noncompliance, recent COVID sent out to medical unit. <ELECTRONICALLY SIGNED> By: Fortino Francisco DO 03/17/21 [id number] Fortino Francisco, /nt
[2021-03-18 08:57] VITALS: BP 128/58
[2021-03-18 19:30] VITALS: BP 121/76
[2021-03-18 20:31] VITALS: BP 121/76
--- NOTE | 2021-03-19 04:33 | NUR ---
PATIENT CARE WAS RESUMED AT 1900. PATIENT WAS IN THE DININIG AREA IN A MAXINE CHAIR. SLEEPY AND TIRED. SHE WAS GIVEN SNACKED AND MEDICATION AND WAS ASSISTED TO BED. PERICARE PROVIDED AND PATIENT MAD COMFORTABLE IN BED. BED IS LOW, LOCKED AND ALARMED. PATIENT LUNGS ARE CLEAR , BS ACTIVE X4 QAUDS. SHE IS INCONTINENT OF BLADDER. SHE TOOK HER MEDS IN PUDDING AND SHE DENIED ANY PAIN. SHE CONTINUED ON YELLOW TOP AND SOCKS. CONTINUE CARE
[2021-03-19 09:39] VITALS: BP 131/82
--- NOTE | 2021-03-19 11:23 | NUR ---
Sleepy this AM but became agitated when she was assisted to get up. Alert and orientated to name only. Denies SI/HI, no speech/behavior suggestive of SI/HI. Breath sounds clear. Reg HR auscultated. Color pink with brisk capillary refill and palpable peripheral pulses. Incontinent of yellow urine. Active bowel sounds over soft, rounded abdomen. Last BM documented as 03/16/21. Only took about 1/3 of her Miralax. Sleeping most of AM in [facility].
--- NOTE | 2021-03-19 19:56 | NUR ---
Assumed care on 03/19/21 @ 1900, in bed eyes closed, respirations even and unlabored, awakens to voice, cooperated with assessment, HRRR, lung sounds clear bilat, but patient does not take deep breath on instruction to do so. ABD N x 4Q. Repositioned patient in bed and she returned to sleep. Bed in low position, bed alarm set, will continue to monitor as per unit protocol for safety and comfort.
[2021-03-19 20:46] VITALS: BP 136/60
[2021-03-20 09:02] VITALS: BP 119/59
[2021-03-20 09:36] VITALS: BP 136/77
[2021-03-20 19:12] VITALS: BP 136/77
[2021-03-20 19:55] VITALS: BP 136/77
--- NOTE | 2021-03-20 20:46 | NUR ---
Assumed pt care this morning from overnight shift. Client was sitting in gerichair in activity area. Client presented disoriented and confused to 3x and was oriented to self only. Client does not know where she is and keeps talking about her family, stating that her brother is coming to pick her up and that she is leaving with her family and dog. Client was unable to be reoriented at this time. Client was not able to answer questions about anxiety/depression/si/hi or hallucinations, though client could be seen talking to air, calling her dog, and stating that she was going on family vacations, while dictating to staff to write letters to her family. Last BM that is documented is 03/16/2021 though pt is on and off incontinent and continent. Pt has been toileted several times today. Bowel sounds normal. Lung sounds clear. No further concerns.
--- NOTE | 2021-03-21 00:32 | NUR ---
Assumed care on 03/19/21 @ 1900 A&Ox1 to self only. Pleasant affect, high fall risk, seated in a xin chair. Ate 100 of evening snack. HRRR, Lungs CTA bilat, ABD N x4 Q. Took meds crushed in pudding. Took Depakote whole and was able to swollow it after both water and pudding. Retired to bed @ , then got up several times without purpose, transferred to xin chair and returned to the day room, where she could be monitored contiously for her safety.
--- NOTE | 2021-03-21 08:51 | NUR ---
03-21-2021--0800--Call to [facility] to talk to DON or SW re: patient DC'ing back to them. Not in. Fax number obtained--[phone]--Left message to return my call to discuss patient discharging.
[2021-03-21 09:20] VITALS: BP 137/75
[2021-03-21 11:17] VITALS: BP 135/75
--- NOTE | 2021-03-21 12:59 | NUR ---
RESUMMED CARE FROM OVERNIGHT SHIFT THIS AM, PATIENT IN DAY ROOM SITTING IN MAXINE CHAIR. PATIENT ALERT TO SELF ONLY, PATIENT ATE BREAKFAST YOU HAVE TO CRUSH MEDICATION. PATIET SPITS OUT HER MEDICATION IF YOU GIVE WHOLE. PATIENT SAYS NO WHEN ASKED ABOUT SI/HI/AH/VH AT PRESENT. PATIENT HAS CONFUSION AND THOUGHTS ARE FLIGHT OF IDEAS. PATIENTS ABDOMEN SOFT BOWEL SOUNDS PRESENT; PATIETS LUNGS CLEAR. PATIENT SOMETIMES IS TALKING OUT LOUD TO SELF NO BEHAVIORS. WILL CONTIUE TO MONITOR PATIENT FOR SAFETY AND BEHAVIORS.
[2021-03-21 19:19] VITALS: BP 142/90
[2021-03-21 19:30] VITALS: BP 142/90
--- NOTE | 2021-03-22 00:49 | NUR ---
PATIENT CARE WAS RESUMES AT 1900. SHE WAS SITTING IN THE DININIG AREA IN MAXINE CHAIR AT THE TABLE. SHE IS AWAKE AND ABLE TO COMMUNICATE SOME NEEDS. SHE IS INCONTINENT OF BOWEL AND BLADDER. LUNGS ARE CLEAR, BS ACTIVE X4 QUAD.SHE TOOK HER MEDS CRUSHED IN APPLE SAUCE. AMBULATES WITH A SBA FOR SUPPORT. SHE DENIES PAINS,SI/AVH/HI.
--- NOTE | 2021-03-22 07:50 | NUR ---
03-21-2021--ADDENDUM TO ABOVE NOTE. PACKET WITH UPDATED INFORMATION SENT TO MORNINGSIDE.
[2021-03-22 09:06] VITALS: BP 144/85
--- NOTE | 2021-03-22 11:14 | NUR ---
Alert and orientated to name only. Denies SI/HI. Confused, rambling speech at times, sleeping rest of time. Calm, cooperative and compliant. Took meds whole with H2O but then noted that a couple were under her tongue. Crushed remainder and placed in apple sauce. Breath sounds clear. Reg HR ausculated. Color pink with brisk capillary refill and palpable peripheral pulses. Brief dry. Active bowel sounds over soft, rounded abdomen. Able to stand and take several steps. Currently sitting in recliner without s/o distress.
[2021-03-22] MEDS ORDERED: NORVASC5 MG PO (12:38)
[2021-03-22] MEDS ORDERED: ASPIRIN EC325 M1 PO (12:38)
[2021-03-22] MEDS ORDERED: DEPAKOTE500 MG PO (12:39)
[2021-03-22] MEDS ORDERED: CHLORPROMAZINE25 M1 PO (12:40)
[2021-03-22] MEDS ORDERED: CHLORPROMAZINE100 MG PO (12:40)
--- NOTE | 2021-03-23 13:51 | D ---
[facility] [place] [address] DISCHARGE SUMMARY Name: ÓSCAR BAILEY Room #: 522A-A [facility] IN M.R.#: [id number] Admission: 03/16/21 Attend Phys: Fortino Francisco DO Discharge: 03/22/21 Date of : 43 Report #: [id number] THIS REPORT FOR: cc: Rasheed Decker MD, Michael E. MD Kerstein, Andrew H. DO ~ DATE OF SERVICE: 03/22/2021 INPATIENT PSYCHIATRIC DISCHARGE SUMMARY It should be noted this was readmission due to her being COVID-19 positive recently. ATTENDING PSYCHIATRIST: Fortino Francisco DO SOLDERER ELECTRONIC: Luis F Hart MD DISCHARGE DIAGNOSES: Major neurocognitive disorder, officially unspecified with behavioral disturbance, but suspect significant alcohol contribution to her dementia. MEDICAL COMORBIDITIES: At time of discharge are as follows: Hypertension, rheumatoid arthritis, anemia of chronic disease, gastroesophageal reflux disease, hyperlipidemia. The patient is being discharged back to long-term care facility. She came from psychiatric medical care per receiving facility. DIET: Regular. Recommending Ensure twice daily. ACTIVITY LEVEL: As tolerated. She does require 24-hour care and supervision. DISCHARGE MEDICATIONS: Aspirin 325 mg oral daily for heart protection, Norvasc 5 mg oral daily for hypertension, Depakote DR 500 mg oral twice daily for mood stabilization, chlorpromazine 75 mg oral at 0900 and 1500 for psychosis, chlorpromazine 100 mg oral at bedtime for sleep and psychosis. ALLERGIES: She had quite a few allergies as well including ROBERTH INHIBITORS, AMOXICILLIN, CLAVULANIC ACID, CYANOCOBALAMIN, FLUOXETINE, RIBOFLAVIN, . LABORATORY DATA: Significant laboratories this admission, . A1c is 6.0. Lipids from the 03/16, triglycerides 97, cholesterol 260, LDL 193, HDL 48. COVID-19 was positive, of course, because she is on quarantine, as found on 03/21. REASON FOR ADMISSION: On 03/16, a 76-year-old female with known advanced dementia. Her brother, Ruben, is her DPOA. The patient spent 10 days in isolation, had a [facility] behavioral course, so she was brought [facility] up [facility] [address] [place] [address] DISCHARGE SUMMARY Name: ÓSCAR BAILEY Room #: 522A-A [facility] IN [facility]#: [id number] Admission: 03/16/21 Attend Phys: Fortino Francisco DO Discharge: 03/22/21 Date of : 43 Report #: [id number] to get a period of behavioral stability. HOSPITAL COURSE: The patient was continued on chlorpromazine and Depakote, she had on the hospital floor. She generally behaved well. There was some insomnia, so I raised her bedtime dose of Thorazine. The patient slept for 8 hours last night of admission. PHYSICAL EXAMINATION: VITAL SIGNS: Temperature 36.0, pulse 93, respirations 18, BP 144/82, O2 sat 94%. She is a no code. Weight 63.049 kilograms. GENERAL: Unkempt female sitting in a Iris chair. MENTAL STATUS EXAMINATION: This is a well-developed, somewhat ill-appearing female, appearing stated age. Attention and concentration limited. Speech normal in rate. Thought process: non-linear. Thought content: Disorganized, varied themes, delusioned . Mood and affect were okay, congruent, euthymic. Denied SI, HI. Denied auditory or visual type hallucinations. Memory known to be impaired. Insight is impaired. Judgment is impaired. Fund of knowledge well below average. Prognosis for this patient is quite guarded given her age of 76 and advanced neurodegenerative disorder. <ELECTRONICALLY SIGNED> By: Fortino Francisco DO 03/23/21 1351 [id number] Fortino Francisco DO /nt
== END 2021-03-22 14:15 | DRG 56 ==
LOC: SBH 05:22
PROVIDERS: Nurse Practitioner; ADMIT Psychiatry & Neurology Psychiatry; ATTEND Psychiatry & Neurology Psychiatry
DX: G30.9 Alzheimer's disease, unspecified (principal); F02.81 Dementia in other diseases classified elsewhere, unspecified severity, with behavioral disturbance; U07.1 COVID-19; E43 Unspecified severe protein-calorie malnutrition; Z68.44 Body mass index [BMI] 60.0-69.9, adult; I10 Essential (primary) hypertension; M06.9 Rheumatoid arthritis, unspecified; D63.8 Anemia in other chronic diseases classified elsewhere; K21.9 Gastro-esophageal reflux disease without esophagitis; F41.9 Anxiety disorder, unspecified; F29 Unspecified psychosis not due to a substance or known physiological condition; M79.7 Fibromyalgia; F95.9 Tic disorder, unspecified; F17.210 Nicotine dependence, cigarettes, uncomplicated; F32.A Depression, unspecified; Z96.649 Presence of unspecified artificial hip joint; G47.00 Insomnia, unspecified; E78.5 Hyperlipidemia, unspecified; Z28.21 Immunization not carried out because of patient refusal; Z88.6 Allergy status to analgesic agent; Z88.1 Allergy status to other antibiotic agents; Z88.8 Allergy status to other drugs, medicaments and biological substances
CPT/HCPCS: 10880